=== PATIENT | female | born 1995 | race Caucasian/White ===

== ENCOUNTER → 2023-09-17 14:14 | Outpatient (REF) | payer MEDICARE, SELFPAY | LOC: HWRAD 14:14 | PROVIDERS: ATTENDING PHYSICIAN Otolaryngology; FAMILY PHYSICIAN Family Medicine | DX: J32.0 Chronic maxillary sinusitis (principal) | CPT/HCPCS: 70486 ==

== ENCOUNTER 2024-02-09 15:15 | Emergency (ER) | payer OTHER, SELFPAY ==
[2024-02-09 15:17] VITALS: BP 119/81
[2024-02-09 15:37] LABS: % Basophils 0.5 % (0-2); % Eosinophils 0.9 % (0-6); % Immature Granulocytes 0.2 % (0-0.5); % Lymphocytes 26.6 % (20.5-51.1); % Monocytes 4.1 % (1.7-9.3); % Neutrophils 67.7 % (42.2-75.2); Absolute Lymphocytes 1.2 10^3/uL (1.2-3.4); Absolute Monocytes 0.2 10^3/uL (0.1-0.6); Hematocrit 34.7 % (37.0-47.0); Hemoglobin 12.3 g/dL (12.0-16.0); Mean Corp Hgb Conc. 35.4 g/dL (33.0-37.0); Mean Corpuscular Hgb 29.5 pg (27.0-31.0); Mean Corpuscular Volume 83.2 fL (81.0-99.0); Mean Platelet Volume 10.6 fL (7.4-10.4); Nucleated Red Blood Cells % 0 %; Platelet Count 180 10^3/uL (130-400); Red Blood Cell Count 4.17 10^6/uL (4.20-5.40); Red Cell Dist. Width 12.1 % (11.5-14.5); White Blood Cell Count 4.4 10^3/uL (4.8-10.8)
[2024-02-09 15:51] LABS: HCG, Serum Qualitative Screen Negative
[2024-02-09 15:58] LABS: Blood Urea Nitrogen 11 mg/dl (7-17); Calcium 9.7 mg/dl (8.4-10.2); Carbon Dioxide 15 mmol/L (22-30); Chloride 111 mmol/L (98-107); Glucose 180 mg/dl (70-99); Sodium 139 mmol/L (135-145); eGFR > 60.00
[2024-02-09 16:02] LABS: Troponin I < 0.012 ng/ml
[2024-02-09 16:22] LABS: TSH Reflex To Free T4 0.68 uIU/ml (0.47-4.68)
[2024-02-09 16:54] VITALS: BP 93/63
[2024-02-09 16:55] VITALS: BMI 39.5
[2024-02-09 16:56] VITALS: BP 105/67; BP 93/63; BP 98/71; PULSE 58; PULSE 71; PULSE 88
[2024-02-09 16:58] VITALS: BP 98/71
[2024-02-09 17:00] VITALS: BP 105/67
--- NOTE | 2024-02-09 17:07 | ED.GENMED ---
History of Present Illness
<Leela Reyes PA-C - Last Filed: 02/09/24 19:19>
General
Chief Complaint: Cardiac Symptoms
Source: patient
Exam Limitations: none
Time Seen by Provider: 02/09/24 16:21
Nursing documentation reviewed up to this point in time: agreed with
History of Present Illness
History of Present Illness:
Patient is a 28-year-old female with history of chronic fatigue syndrome, PCOS, lupus presenting to the emergency department for evaluation of elevated heart rate at home. Patient states that over the past few days she has had few episodes of
elevated heart rate, most notable when she goes from sitting to standing. She has used her mom's pulse ox and states that pulse has been in the low 100s�150s. Symptoms last at most a few minutes and resolve when she sits down. Patient does
endorse some associated mild chest pain during these episodes and lightheadedness.
Patient denies any associated shortness of breath, numbness/tingling, weakness. Patient denies any pain in lower extremities. No recent travel or recent surgeries. No exogenous hormone use. No personal or family history of blood clots.
At this time patient is asymptomatic. Patient does have an appointment scheduled with a surveillance operator for next Thursday.
Past History
<Leela Reyes PA-C - Last Filed: 02/09/24 19:19>
Past History
ED Past Medical History: Fibromyalgia, Psychiatric (Anxiety, depression), Other (fibromyalgia, chronic migraines, Lupus) and Other (Polycystic ovarian syndrome, seasonal allergies, morbid obesity)
ED Past Surgical History: Other (Septoplasty)
Social History
Tobacco: Non-smoker
Alcohol: None
Drug: None
Review of Systems
<Leela Reyes PA-C - Last Filed: 02/09/24 19:19>
Review of Systems
Allergies reviewed?: Yes
All Other Systems: ROS reviewed and negative except as documented in HPI and ROS
Phy Exam
<Leela Reyes PA-C - Last Filed: 02/09/24 19:19>
Physical Exam
Physical Exam:
Vitals: Patient's vital signs are stable. Afebrile
General: Patient is well appearing, no acute distress
Skin: Warm and dry, no rashes or lesions
Head: Normocephalic, atraumatic
Eyes: Sclera nonicteric. EOMs intact. No nystagmus.
Throat: Protecting airway
Neck: Normal ROM, no cervical spine tenderness, no meningismus
Cardiac: Regular rate and rhythm, no murmurs.
Pulm: Normal respiratory effort, no wheezes, rales, rhonchi heard on exam.
Abdomen: Abdomen soft. No abdominal tenderness.
Extremities: No evidence of cyanosis or edema. Distal pulses palpable and equal bilaterally in upper and lower extremities.
Neuro: AAOx3. CN II-XII intact. No focal neurologic deficits.
Psychiatric: Normal affect.
Course
<Leela Reyes PA-C - Last Filed: 02/09/24 19:19>
Orders/Labs/Results
Orders:
Orders
02/09/24 15:17
EKG [Electrocardiogram (*1)] Urgent
Reason for Study: Chest Pain
Comment: palpitations
EKG- Treatment ONCE
02/09/24 15:23
Test Result ONCE
02/09/24 15:26
Basic Metabolic Panel Urgent
Complete Blood Count/With Diff Urgent
HCG, Serum Qualitative Screen Urgent
TSH Reflex To Free T4 Urgent
Troponin I Urgent
02/09/24 17:04
Orthostatic VS- Treatment ONCE
Abnormal Lab Results
02/09/24
15:26
WBC 4.4 L 10^3/uL
(4.8-10.8)
RBC 4.17 L 10^6/uL
(4.20-5.40)
Hct 34.7 L %
(37.0-47.0)
MPV 10.6 H fL
(7.4-10.4)
Chloride 111 H mmol/L
(98-107)
Carbon Dioxide 15 L mmol/L
(22-30)
Glucose 180 H mg/dl
(70-99)
02/09/24 15:26
02/09/24 15:26
Vital Signs
Initial and Last Documented VS:
Initial Vital Signs
Temp Pulse Resp BP Pulse Ox
98.4 F 90 16 119/81 97
02/09/24 15:17 02/09/24 15:17 02/09/24 15:17 02/09/24 15:17 02/09/24 15:17
Last Documented Vital Signs
Temp Pulse Resp BP Pulse Ox
98.4 F 63 23 105/67 95
02/09/24 15:17 02/09/24 17:30 02/09/24 17:30 02/09/24 17:00 02/09/24 17:30
<Sabrina Olmos, DO - Last Filed: 02/09/24 17:32>
Orders/Labs/Results
Orders:
Orders
02/09/24 15:17
EKG [Electrocardiogram (*1)] Urgent
Reason for Study: Chest Pain
Comment: palpitations
EKG- Treatment ONCE
02/09/24 15:23
Test Result ONCE
02/09/24 15:26
Basic Metabolic Panel Urgent
Complete Blood Count/With Diff Urgent
HCG, Serum Qualitative Screen Urgent
TSH Reflex To Free T4 Urgent
Troponin I Urgent
02/09/24 17:04
Orthostatic VS- Treatment ONCE
Abnormal Lab Results
02/09/24
15:26
WBC 4.4 L 10^3/uL
(4.8-10.8)
RBC 4.17 L 10^6/uL
(4.20-5.40)
Hct 34.7 L %
(37.0-47.0)
MPV 10.6 H fL
(7.4-10.4)
Chloride 111 H mmol/L
(98-107)
Carbon Dioxide 15 L mmol/L
(22-30)
Glucose 180 H mg/dl
(70-99)
02/09/24 15:26
02/09/24 15:26
Vital Signs
Initial and Last Documented VS:
Initial Vital Signs
Temp Pulse Resp BP Pulse Ox
98.4 F 90 16 119/81 97
02/09/24 15:17 02/09/24 15:17 02/09/24 15:17 02/09/24 15:17 02/09/24 15:17
Last Documented Vital Signs
Temp Pulse Resp BP Pulse Ox
98.4 F 63 23 105/67 95
02/09/24 15:17 02/09/24 17:30 02/09/24 17:30 02/09/24 17:00 02/09/24 17:30
<Leela Reeys PA-C - Last Filed: 02/09/24 19:19>
MDM/Problems Addressed
Differential Diagnosis Includes:
Not limited to: Orthostatic hypotension, cardiac arrhythmia, dehydration, viral illness, POTS, etc.
MDM/Problems Addressed:
28-year-old female presenting with history of palpitations and elevated heart rate at home with positional changes. Asymptomatic in emergency department. No current chest pain, shortness of breath, palpitations. Vital stable. Physical exam as
above. Cardio/pulmonary assessment unremarkable. No focal neurologic deficits. Patient is perfusing well. Orthostatic vital signs were obtained with mild elevation in heart rate although no significant tachycardia. Labs initiated in triage
without clinically significant abnormalities. TSH is within normal range. Initial troponin undetectable. Low suspicion for ACS at this time�no indication to repeat troponin. Patient is PERC negative�do not suspect PE. EKG obtained without any
acute ischemic changes. Patient is currently being worked up for POTS which may be contributing to patient's symptoms. Symptoms do seem positional. Workup here unremarkable. Feel patient is stable for discharge with cardiology follow-up as
scheduled. Patient may benefit from Holter monitor. Advised patient to stay well-hydrated. Very strict return precaution discussed at length. Patient ambulating out of emergency department without difficulty.
Chronic conditions affecting care:
N/A
Acute Exacerbation and/or Progression of Chronic Illness:
N/A
<Leela Reyes PA-C - Last Filed: 02/09/24 19:19>
*Pulse Oximetry
Patient hypoxic: no
*EKG
Interpreted by ED Provider?: Yes
EKG Intrepretation Date: 02/09/24
Interpretation: normal
Comparison EKG: no changes
Heart Rate: 75
Rate: normal
Rhythm: sinus and sinus arrhythmia
[place]: normal axis
Interval: normal interval
QRS Pattern: normal QRS
Ischemia: no ischemia
*Packaging Designer Interpretation
Rate: normal
Interpretation: normal
Heart Rate: 68
Rhythm: sinus
*Critical Care Note
Total Time (30-74mins, 75-104mins- exclusive of procedures): Not Applicable
ED Attending Note
<Leela Reyes PA-C - Last Filed: 02/09/24 19:19>
-
Portions of this chart may have been created with voice recognition software.� Occasional wrong word or��sound alike� substitutions may have occurred due to the inherent limitations of voice recognition software.
<Sabrina Olmos DO - Last Filed: 02/09/24 17:32>
ED Attending Note
Patient seen and examined by attending physician: Yes
I performed the substantive portion of visit, reviewed & personally made and approve the management plan that is documented in note by myself or BRO.: Yes
I performed a history and physical exam of patient and discussed management with resident, I reviewed resident's note and agree with documented findings and plan of care.: Yes
ED Attending Note:
28-year-old female with history of lupus, chronic fatigue, fibromyalgia presenting to the emergency department for chest pain and palpitations when going from sitting to standing position. Reports symptoms for the past several days, however has
been ongoing for weeks. She is due to see cardiology next week. Denies known cardiac history. Denies difficulty breathing. Denies history of recent surgery, travel, exogenous estrogen, or any history of blood clots. Denies fever or cough.
Denies recent fall or trauma. Vital signs on arrival are normal.
On exam, patient is resting comfortably, no acute distress or discomfort. Unremarkable cardiac and pulmonary exam. EKG obtained on arrival, sinus rhythm without acute evidence of ischemia. Labs obtained prior to my assessment, undetectable
troponin. Without present concern for ACS. Patient is PERC negative without concern for PE. Patient reports that she is currently being worked up for POTS, which may be underlying etiology of patient's symptoms. Patient had orthostatic vital
signs obtained, no significant tachycardia. At this time do suspect postural component. Feel stable for discharge with interval follow-up with cardiology. Advised continued oral hydration. Strict return precautions communicated to patient
verbalized understanding.
Discharge Plan
Departure
Patient Disposition: Home (Routine Discharge)
Date of Disposition: 02/09/24
Time of Disposition: 17:35
Patient with high blood pressure during this ER visit?: No
Condition: Good
Covid-19: Not Applicable
Discharge Problem:
History of palpitations
Instructions: Palpitations ED
Prescriptions:
No Action
amoxicillin-pot clavulanate 875 MG/125 MG tablet
1 tab PO Q12 Qty: 14 0RF
amoxicillin-pot clavulanate 875 MG/125 MG tablet
1 tab PO Q12 Qty: 6 0RF
amoxicillin 500 MG capsule
500 mg PO TID Qty: 30 0RF
hydrocodone-acetaminophen [Vicodin] 1 EACH tablet
1 ea PO .Q4-6HPRN Qty: 12 0RF
ibuprofen 600 MG tablet
600 mg PO Q6H Qty: 30 0RF
xb-ngkyycst-kbhacynpfefu#1-al [Auralgan (w/ acetic acid)] 14 ML drops
14 ml OT PRN PRN (Reason: ear pain) Qty: 1 0RF
prednisone 10 MG tablet
10 mg PO .TAPER Qty: 30 0RF
Rx Instructions:
Take 40mg daily x3days, 30mg daily x3days,
20mg daily x3days, 10mg daily x3days.
hydrocodone-acetaminophen 1 TABLET tablet
1 tab PO Q4HPRN PRN (Reason: pain) Qty: 8 0RF
diazepam 5 MG tablet
5 mg PO TIDPRN PRN (Reason: spasm) Qty: 9 0RF
clindamycin HCl 300 MG capsule
300 mg PO Q6 Qty: 28 0RF
ondansetron 4 MG tablet,disintegrating
4 mg PO TIDPRN PRN (Reason: nausea/vomiting) Qty: 12 0RF
prednisone 20 MG tablet
40 mg PO DAILY Qty: 8 0RF
Referrals:
Patti Gill MD [Primary Care Provider] -
Meir Greer MD [Active] - As needed
Activity Restrictions/Additional Instructions:
RETURN TO THE EMERGENCY DEPARTMENT WITH ANY CHEST PAIN, SHORTNESS OF BREATH, PERSISTENTLY ELEVATED HEART RATE, DIZZINESS, WORSENING IN CURRENT SYMPTOMS, OR ANY OTHER CONCERNS
-As discussed�you should keep your appointment for cardiology follow-up as scheduled. You may need a Holter monitor/further evaluation. I have provided the information for a surveillance operator within the [facility] network if needed.
-It is important stay well-hydrated. You should take it easy, get plenty of rest. Continue to take all medications as prescribed
-Follow-up with cardiology and primary care for further evaluation/management
Monitor your symptoms closely and return to the emergency department with any acute worsening/new symptoms or any other concerns
Interventions
Interventions:
*Risk Screen - Suicide Last Done: 02/09/24 17:04
*General Assessment Last Done: 02/09/24 17:03
*Neglect/Abuse Screening Last Done: 02/09/24 17:04
ED- Fall Risk Assessment Last Done: 02/09/24 17:58
*ED COVID-19 Vaccine History Last Done: 02/09/24 17:03
*Nursing Disposition Last Done: 02/09/24 17:58
ED- Pulmonary Assessment Last Done: 02/09/24 17:00
ED- Cardiac Assessment Last Done: 02/09/24 17:00
Discharge Date and Time
Discharge Date/Time: 02/09/24 17:50
Print Language: SERBIAN
== END 2024-02-09 17:50 | disposition home or self-care (01) ==
LOC: EMR 15:15
PROVIDERS: Student in an Organized Health Care Education/Training Program; EMERGENCY PHYSICIAN Student in an Organized Health Care Education/Training Program; PRIMARYCARE PHYSICIAN Family Medicine
DX: R00.2 Palpitations (principal); G93.32 Myalgic encephalomyelitis/chronic fatigue syndrome; E28.2 Polycystic ovarian syndrome; M32.9 Systemic lupus erythematosus, unspecified; E66.01 Morbid (severe) obesity due to excess calories; M79.7 Fibromyalgia
CPT/HCPCS: 99283; 80048; 84443; 84484; 84703; 85025; 93005

== ENCOUNTER → 2024-03-31 07:48 | Outpatient (REF) | payer MEDICARE, SELFPAY | LOC: RAD 07:48 | PROVIDERS: ATTENDING PHYSICIAN Internal Medicine Gastroenterology; FAMILY PHYSICIAN Family Medicine | DX: R11.2 Nausea with vomiting, unspecified (principal); K31.84 Gastroparesis | CPT/HCPCS: 78264; A9541 ==

== ENCOUNTER 2024-06-03 18:32 | Emergency (ER) | payer MEDICARE, OTHER, SELFPAY ==
[2024-06-03 18:36] VITALS: BP 127/93
--- NOTE | 2024-06-03 19:08 | ED.GENMED ---
History of Present Illness
General
Chief Complaint: Bowel Problem
Time Seen by Provider: 06/03/24 18:47
History of Present Illness
History of Present Illness:
29-year-old female history of IBS, gastroparesis presenting with constipation for the past 1 week. Patient states that she feels rectal pain/pressure like she needs to have a bowel movement but is unable to push it out. Patient reports lower
abdominal pain. Patient states she has tried taking 1 day of Dulcolax, 1 day of senna, 1 day MiraLAX with no improvement. Patient states that these medications make her feel nauseous and sweaty with worsening abdominal cramping. Patient states
that whenever she uses suppository or enema it falls out. Otherwise patient states that she is still passing gas. Patient states she discussed with her GI office who recommended come to the emergency department for further evaluation.
Past History
Past History
ED Past Medical History: Fibromyalgia, Psychiatric (Anxiety, depression), Other (fibromyalgia, chronic migraines, Lupus) and Other (Polycystic ovarian syndrome, seasonal allergies, morbid obesity)
ED Past Surgical History: Other (Septoplasty)
Social History
Tobacco: Non-smoker
Alcohol: None
Drug: None
Phy Exam
Physical Exam
Physical Exam:
General: Alert, no acute distress
Head: NCAT
Eyes: clear conjunctiva
Neck: supple
Cardiac: regular rate and rhythm, no murmur
Lungs: clear to auscultation bilaterally. No wheezes, rales, or rhonchi. Speaking full unlabored sentences. No respiratory distress.
Abdomen: soft, nondistended nontender. No rebound or guarding. Not peritonitic.
MSK: no lower extremity edema bilaterally. No deformity
Skin: warm, dry
Neuro: Alert and oriented x3. no focal deficits
Course
Vital Signs
Initial and Last Documented VS:
Initial Vital Signs
Temp Pulse Resp BP Pulse Ox
98.2 F 90 20 127/93 99
06/03/24 18:36 06/03/24 18:36 06/03/24 18:36 06/03/24 18:36 06/03/24 18:36
Last Documented Vital Signs
Temp Pulse Resp BP Pulse Ox
98.2 F 90 20 127/93 99
06/03/24 18:36 06/03/24 18:36 06/03/24 18:36 06/03/24 18:36 06/03/24 18:36
MDM/Problems Addressed
MDM/Problems Addressed:
29-year-old female history of IBS, gastroparesis presenting with constipation for the past 1 week. Patient reports taking 1 dose of MiraLAX, senna, Colace with minimal improvement and feels that these medications make her symptoms worse. Patient
states that she is still passing gas. Abdomen soft, nontender, nondistended. Offered rectal exam for manual disimpaction, patient declined. No indication for further imaging giving benign abdominal exam, no vomiting, patient still passing gas,
low suspicion for bowel obstruction. Recommended to drink lots of water, increase fiber intake, will prescribe lactulose. Stable for discharge with GI follow-up
*Critical Care Note
Total Time (30-74mins, 75-104mins- exclusive of procedures): Not Applicable
ED Attending Note
-
Portions of this chart may have been created with voice recognition software.� Occasional wrong word or��sound alike� substitutions may have occurred due to the inherent limitations of voice recognition software.
Discharge Plan
Departure
Patient Disposition: Home (Routine Discharge)
Date of Disposition: 06/03/24
Time of Disposition: 19:14
Patient with high blood pressure during this ER visit?: Yes
Discharge Problem:
Constipation
Instructions: Constipation, Adult ED
Prescriptions:
New
lactulose 10 gram/15 mL solution
20 g PO BID Qty: 1200 0RF
No Action
amoxicillin-pot clavulanate 875 MG/125 MG tablet
1 tab PO Q12 Qty: 14 0RF
amoxicillin-pot clavulanate 875 MG/125 MG tablet
1 tab PO Q12 Qty: 6 0RF
amoxicillin 500 MG capsule
500 mg PO TID Qty: 30 0RF
hydrocodone-acetaminophen [Vicodin] 1 EACH tablet
1 ea PO .Q4-6HPRN Qty: 12 0RF
ibuprofen 600 MG tablet
600 mg PO Q6H Qty: 30 0RF
md-cnzwjymv-tswsxfvhunhd#1-al [Auralgan (w/ acetic acid)] 14 ML drops
14 ml OT PRN PRN (Reason: ear pain) Qty: 1 0RF
prednisone 10 MG tablet
10 mg PO .TAPER Qty: 30 0RF
Rx Instructions:
Take 40mg daily x3days, 30mg daily x3days,
20mg daily x3days, 10mg daily x3days.
hydrocodone-acetaminophen 1 TABLET tablet
1 tab PO Q4HPRN PRN (Reason: pain) Qty: 8 0RF
diazepam 5 MG tablet
5 mg PO TIDPRN PRN (Reason: spasm) Qty: 9 0RF
clindamycin HCl 300 MG capsule
300 mg PO Q6 Qty: 28 0RF
ondansetron 4 MG tablet,disintegrating
4 mg PO TIDPRN PRN (Reason: nausea/vomiting) Qty: 12 0RF
prednisone 20 MG tablet
40 mg PO DAILY Qty: 8 0RF
Referrals:
Lani Ferrari MD [Active] -
UNKNOWN - PT DOES,NOT KNOW [Family Provider] -
Activity Restrictions/Additional Instructions:
Drink lots of water
Increase fiber intake
Take lactulose twice daily as needed for constipation
Follow-up with GI
Return to the emergency department for not passing gas or new/worsening symptoms
Interventions
Interventions:
*Risk Screen - Suicide Last Done: 06/03/24 19:12
*General Assessment Last Done: 06/03/24 18:36
*Neglect/Abuse Screening Last Done: 06/03/24 19:12
*ED- Fall Risk Assessment Last Done: 06/03/24 19:12
*ED COVID-19 Vaccine History Last Done: 06/03/24 19:12
*Nursing Disposition Last Done: 06/03/24 20:08
OU-Avbhix-Qechktclxx Assessment Last Done: 06/03/24 19:12
Discharge Date and Time
Discharge Date/Time: 06/03/24 20:16
Print Language: YORUBA
[2024-06-03 19:12] VITALS: BMI 37.1
== END 2024-06-03 20:16 | disposition home or self-care (01) ==
LOC: EMR 18:32
PROVIDERS: EMERGENCY PHYSICIAN Emergency Medicine
DX: K59.00 Constipation, unspecified (principal); R03.0 Elevated blood-pressure reading, without diagnosis of hypertension; K58.9 Irritable bowel syndrome, unspecified
CPT/HCPCS: 99282

== ENCOUNTER → 2024-06-27 14:52 | Outpatient (REF) | payer MEDICARE, OTHER, SELFPAY | LOC: RAD 14:52 | PROVIDERS: ATTENDING PHYSICIAN Student in an Organized Health Care Education/Training Program | DX: K59.00 Constipation, unspecified (principal) | CPT/HCPCS: 74019 ==

== ENCOUNTER 2024-07-17 10:34 | Emergency (ER) | payer MEDICARE, OTHER, SELFPAY ==
[2024-07-17 10:36] VITALS: BP 121/72
[2024-07-17 11:36] VITALS: BMI 36.0
[2024-07-17 11:52] LABS: % Basophils 0.4 % (0-2); % Eosinophils 0.4 % (0-6); % Lymphocytes 28.7 % (20.5-51.1); % Neutrophils 63.5 % (42.2-75.2); Absolute Lymphocytes 1.3 10^3/uL (1.2-3.4); Absolute Monocytes 0.3 10^3/uL (0.1-0.6); Absolute Neutrophils 2.8 10^3/uL (1.4-6.5); Hematocrit 35.7 % (37.0-47.0); Hemoglobin 12.5 g/dL (12.0-16.0); Mean Corpuscular Hgb 29.8 pg (27.0-31.0); Mean Platelet Volume 10.5 fL (7.4-10.4); Nucleated Red Blood Cells % 0 %; Platelet Count 188 10^3/uL (130-400); Red Cell Dist. Width 12.2 % (11.5-14.5); White Blood Cell Count 4.5 10^3/uL (4.8-10.8)
[2024-07-17 12:05] LABS: HCG, Serum Qualitative Screen Negative
[2024-07-17 12:07] LABS: ALT (SGPT) 29 U/L (0-35); AST (SGOT) 26 U/L (14-36); Albumin 4.5 g/dl (3.5-5.0); Alkaline Phosphatase 51 U/L (38-126); Blood Urea Nitrogen 13 mg/dl (7-17); Calcium 9.7 mg/dl (8.4-10.2); Carbon Dioxide 21 mmol/L (22-30); Chloride 110 mmol/L (98-107); Estimated Creatinine Clearance 124 ml/min; Glucose 101 mg/dl (70-99); Potassium 4.4 mmol/L (3.5-5.1); Sodium 140 mmol/L (135-145); Total Bilirubin 0.5 mg/dl (0.2-1.3); Total Protein 6.7 g/dl (6.3-8.2); eGFR > 60.00
--- NOTE | 2024-07-17 12:17 | ED.GENMED ---
History of Present Illness
General
Chief Complaint: Abdominal Symptoms
Source: patient
Exam Limitations: none
Time Seen by Provider: 07/17/24 12:00
Nursing documentation reviewed up to this point in time: agreed with
History of Present Illness
History of Present Illness:
29-year-old female with history of gastroparesis, POTS, fibromyalgia, PCOS, migraines, lupus, interstitial cystitis and is being worked up for mast cell syndrome. She presents with 4 days of diarrhea, back and neck pain, stomach cramps that come
and go, nausea for which she has been taking Pepto-Bismol and Zofran with some relief, retching but no vomiting. So far today she has had 6 episodes of diarrhea, the last one was 15 minutes ago. No recent antibiotic use.
She also states she has an IUD and noted some spotting today which is new for her.
She denies fever or chills, denies chest pain or trouble breathing.
She has an appointment with her automotive sales representative at [facility] in [place] in 3 days
Past History
Past History
ED Past Medical History: Fibromyalgia, Psychiatric (Anxiety, depression), Other (fibromyalgia, chronic migraines, Lupus, POTS) and Other (Polycystic ovarian syndrome, seasonal allergies, morbid obesity)
ED Past Surgical History: Other (Septoplasty)
Social History
Tobacco: Non-smoker
Alcohol: None
Drug: None
Review of Systems
Review of Systems
Allergies reviewed?: Yes
All Other Systems: ROS reviewed and negative except as documented in HPI and ROS
Constitutional: Denies fever
Respiratory: Denies trouble breathing
Cardiac: Denies chest pain
ABD/GI: Reports abdominal pain, nausea, vomiting, diarrhea and anorexia; Denies bloody stools or black stools
: Reports dysuria (chronic with her cystitis) and other (spotting noted today has IUD); Denies frequency, flank pain, difficulty voiding or urgency
Musculoskeletal: Reports no symptoms
Skin: Reports no symptoms
Neurological: Reports headache; Denies dizzy, weakness or numbness
Phy Exam
Physical Exam
Physical Exam:
GENERAL: No acute distress. A&Ox3.
CONSTITUTIONAL: Afebrile.
EYES: clear, conjunctivae normal
ENMT: moist mucus membranes, Pharynx nl
RESPIRATORY: Regular respirations, nonlabored, lungs clear.
CARDIOVASCULAR: Regular rate and rhythm, no murmurs, no rubs.
GI: Soft, obese, tender mid lower abdomen, normal BS
MUSCULOSKELETAL: Moves with ease. Well perfused.
SKIN: Warm, dry, pink
PSYCH: Normal mood and affect. Well kept, interactive and appropriate
NEUROLOGIC: Awake, alert and oriented. No focal neurological deficits
Course
Orders/Labs/Results
Orders:
Orders
07/17/24 11:38
Test Result ONCE
07/17/24 11:43
Complete Blood Count/With Diff Urgent
Comprehensive Metabolic Panel Urgent
HCG, Serum Qualitative Screen Urgent
Lipase Urgent
07/17/24 12:05
Stool Culture Urgent
XENA Source: Feces/Stool
Specimen Description:
Date Specimen was Collected: 07/17/24
Time Specimen was Collected: 12:00
07/17/24 12:07
CDIFF [C difficile Antigen & Toxins] Urgent
XENA Source: Feces/Stool
Specimen Description:
Date Specimen was Collected: 07/17/24
Time Specimen was Collected: 12:06
07/17/24 12:15
0.9% Sodium Chloride 1000 ml [Nss] 1,000 ml IV BOLUS
07/17/24 12:16
Ondansetron Injectable [Zofran] 4 mg IV NOW STA
07/17/24 12:33
CT Abd/Pel (IV only)-DH only Urgent
Comment:
Reason For Exam: abd pain, diarrhea, vomiting
07/17/24 14:50
Dicyclomine [Bentyl] 10 mg PO NOW STA
Loperamide [Imodium] 2 mg PO NOW STA
07/17/24 15:17
Urinalysis Reflex To Culture Urgent
Date Specimen was Collected: 07/17/24
Time Specimen was Collected: 12:43
Urine Microscopic Reflex Cult Urgent
Abnormal Lab Results
07/17/24 07/17/24
11:43 15:17
WBC 4.5 L 10^3/uL
(4.8-10.8)
Hct 35.7 L %
(37.0-47.0)
MPV 10.5 H fL
(7.4-10.4)
Chloride 110 H mmol/L
(98-107)
Carbon Dioxide 21 L mmol/L
(22-30)
Glucose 101 H mg/dl
(70-99)
Urine Ketones 3+ A
(Negative)
Ur Occult Blood Reflex 3+ A
(Negative)
Urine Bacteria (Reflex) Few A
(Negative)
Urine Albumin (Reflex) 2+ A
(Neg - Trace)
07/17/24 11:43
07/17/24 11:43
Vital Signs
Initial and Last Documented VS:
Initial Vital Signs
Temp Pulse Resp BP Pulse Ox
97.9 F 83 16 121/72 98
07/17/24 10:36 07/17/24 10:36 07/17/24 10:36 07/17/24 10:36 07/17/24 10:36
Last Documented Vital Signs
Temp Pulse Resp BP Pulse Ox
97.9 F 73 18 104/68 100
07/17/24 10:36 07/17/24 14:37 07/17/24 14:37 07/17/24 14:37 07/17/24 14:37
Spike Machine Heater consulted with Physician
Spike Machine Heater consulted with physician?: Yes
Name of Physician Consulted: Nik
MDM/Problems Addressed
Differential Diagnosis Includes:
viral gastroenteritis, diverticulitis, UTI
MDM/Problems Addressed:
29-year-old female with history of gastroparesis, POTS, fibromyalgia, PCOS, migraines, lupus, interstitial cystitis and is being worked up for mast cell syndrome. She presents with 4 days of diarrhea, back and neck pain, stomach cramps that come
and go, nausea for which she has been taking Pepto-Bismol and Zofran with some relief, retching but no vomiting. So far today she has had 6 episodes of diarrhea, the last one was 15 minutes ago. No recent antibiotic use.
She also states she has an IUD and noted some spotting today which is new for her.
She denies fever or chills, denies chest pain or trouble breathing.
She has an appointment with her automotive sales representative at [facility] in [place] in 3 days
Afebrile, NAD
1:00 PM:
CBC normal
CMP normal
hCG negative
Lipase normal
2:40 p.m.
Has had one episode diarrhea since arrival.
CT abd/pelvis w IV only contrast, radiology report read: IMPRESSION:
Relatively underdistended/collapsed colon. However there does appear to be at least mild wall thickening, which could suggest colitis in the proper clinical setting. No significant soft tissue stranding. No evidence of pneumatosis.
All results reviewed with pt and given copy of CT result as well as labs.
Plan: antidiarrheal, Bentyl for abd cramps, Zofran as needed. Keep GI appt. in 3 days
Case discussed with Dr. Zaragoza who agrees with plan.
*Critical Care Note
Total Time (30-74mins, 75-104mins- exclusive of procedures): Not Applicable
ED Attending Note
-
Portions of this chart may have been created with voice recognition software.� Occasional wrong word or��sound alike� substitutions may have occurred due to the inherent limitations of voice recognition software.
Discharge Plan
Departure
Patient Disposition: Home (Routine Discharge)
Date of Disposition: 07/17/24
Time of Disposition: 14:51
Patient with high blood pressure during this ER visit?: No
Condition: Good
Discharge Problem:
Abdominal pain, Diarrhea, Nausea
Instructions: Diarrhea in teens and adults, Abdominal Pain
Prescriptions:
New
ondansetron 4 mg tablet,disintegrating
4 mg PO Q8H PRN (Reason: nausea and vomiting) 4 Days Qty: 10 0RF
dicyclomine 10 mg capsule
10 mg PO QID PRN (Reason: abdominal cramping) Qty: 20 0RF
No Action
amoxicillin-pot clavulanate 875 MG/125 MG tablet
1 tab PO Q12 Qty: 14 0RF
amoxicillin-pot clavulanate 875 MG/125 MG tablet
1 tab PO Q12 Qty: 6 0RF
amoxicillin 500 MG capsule
500 mg PO TID Qty: 30 0RF
hydrocodone-acetaminophen [Vicodin] 1 EACH tablet
1 ea PO .Q4-6HPRN Qty: 12 0RF
ibuprofen 600 MG tablet
600 mg PO Q6H Qty: 30 0RF
ym-iwcsmayu-bucvyufhrujw#1-al [Auralgan (w/ acetic acid)] 14 ML drops
14 ml OT PRN PRN (Reason: ear pain) Qty: 1 0RF
prednisone 10 MG tablet
10 mg PO .TAPER Qty: 30 0RF
Rx Instructions:
Take 40mg daily x3days, 30mg daily x3days,
20mg daily x3days, 10mg daily x3days.
hydrocodone-acetaminophen 1 TABLET tablet
1 tab PO Q4HPRN PRN (Reason: pain) Qty: 8 0RF
diazepam 5 MG tablet
5 mg PO TIDPRN PRN (Reason: spasm) Qty: 9 0RF
clindamycin HCl 300 MG capsule
300 mg PO Q6 Qty: 28 0RF
ondansetron 4 MG tablet,disintegrating
4 mg PO TIDPRN PRN (Reason: nausea/vomiting) Qty: 12 0RF
prednisone 20 MG tablet
40 mg PO DAILY Qty: 8 0RF
lactulose 10 gram/15 mL solution
20 g PO BID Qty: 1200 0RF
Referrals:
Your, GI doctor [Other] - Keep scheduled appt
Chelle Burk MD, Resident [Family Provider] -
Activity Restrictions/Additional Instructions:
As we discussed, nothing worrisome in your workup here today.
Take Imodium as directed on the package. You were given a dose here today
Try Bentyl for the abdominal cramps. You were given a dose here today. I sent a prescription for it to your pharmacy.
I also sent a prescription for Zofran to use if needed for nausea. You were given a dose of Zofran here today.
Keep you appointment with your GI doctor in 3 days.
Interventions
Interventions:
*Risk Screen - Suicide Last Done: 07/17/24 11:36
*General Assessment Last Done: 07/17/24 11:36
*Neglect/Abuse Screening Last Done: 07/17/24 11:36
YL-Djzmew-Wvvdohizvv Assessment Last Done: 07/17/24 11:36
Discharge Date and Time
Print Language: CZECH
[2024-07-17 12:22] LABS: Lipase 110 U/L (23-300)
[2024-07-17] MEDS: ZOFRAN 4 MG IV (12:29)
[2024-07-17] MEDS: NSS 1000 IV (12:29)
[2024-07-17 14:37] VITALS: BP 104/68
[2024-07-17] MEDS: BENTYL 10 MG PO (15:14)
[2024-07-17] MEDS: IMODIUM 2 MG PO (15:14)
[2024-07-17 15:33] LABS: Urine Albumin 2+ (Neg - Trace); Urine Bilirubin Negative (Negative); Urine Character Slightly Cloudy (Clear); Urine Color Yellow; Urine Glucose Negative (Negative); Urine Ketone 3+ (Negative); Urine Leukocyte Negative (Negative); Urine Nitrite Negative (Negative); Urine Occult Blood 3+ (Negative); Urine Urobilinogen Negative (Neg - 1+)
[2024-07-17 15:43] LABS: Urine Bacteria Few (Negative)
[2024-07-17 15:44] LABS: Urine Red Blood Cell 0-2 /HPF (0-2); Urine White Cell 0-2 /HPF (0-5)
== END 2024-07-17 16:52 | disposition home or self-care (01) ==
LOC: EMR 10:34
PROVIDERS: Registered Nurse; EMERGENCY PHYSICIAN Emergency Medicine; FAMILY PHYSICIAN Student in an Organized Health Care Education/Training Program
DX: R19.7 Diarrhea, unspecified (principal); R11.0 Nausea; R10.9 Unspecified abdominal pain; M79.7 Fibromyalgia; E28.2 Polycystic ovarian syndrome
CPT/HCPCS: 96374; 96361; 99284; 74177; 80053; 81003; 81015; 83690; 84703; 85025; 87045; 87046; 87324; 87427; 87449; Q9967

== ENCOUNTER 2024-08-25 14:37 | Emergency (ER) | payer MEDICARE, OTHER, SELFPAY ==
[2024-08-25 14:49] VITALS: BP 113/79
[2024-08-25 15:15] LABS: % Basophils 0.4 % (0-2); % Eosinophils 0.6 % (0-6); % Immature Granulocytes 0.4 % (0-0.5); % Lymphocytes 20.7 % (20.5-51.1); % Monocytes 5.4 % (1.7-9.3); % Neutrophils 72.5 % (42.2-75.2); Absolute Lymphocytes 1.1 10^3/uL (1.2-3.4); Absolute Monocytes 0.3 10^3/uL (0.1-0.6); Absolute Neutrophils 3.9 10^3/uL (1.4-6.5); Hematocrit 37.3 % (37.0-47.0); Hemoglobin 12.8 g/dL (12.0-16.0); Mean Corp Hgb Conc. 34.3 g/dL (33.0-37.0); Mean Corpuscular Hgb 29.6 pg (27.0-31.0); Mean Corpuscular Volume 86.3 fL (81.0-99.0); Mean Platelet Volume 10.1 fL (7.4-10.4); Nucleated Red Blood Cells % 0 %; Platelet Count 181 10^3/uL (130-400); Red Blood Cell Count 4.32 10^6/uL (4.20-5.40); Red Cell Dist. Width 12.1 % (11.5-14.5); White Blood Cell Count 5.4 10^3/uL (4.8-10.8)
[2024-08-25 15:32] LABS: ALT (SGPT) 25 U/L (0-35); AST (SGOT) 21 U/L (14-36); Albumin 4.1 g/dl (3.5-5.0); Alkaline Phosphatase 28 U/L (38-126); Blood Urea Nitrogen 10 mg/dl (7-17); Calcium 9.3 mg/dl (8.4-10.2); Carbon Dioxide 23 mmol/L (22-30); Chloride 115 mmol/L (98-107); Glucose 95 mg/dl (70-99); Lipase 120 U/L (23-300); Potassium 4.3 mmol/L (3.5-5.1); Sodium 143 mmol/L (135-145); Total Bilirubin 0.3 mg/dl (0.2-1.3); Total Protein 6.5 g/dl (6.3-8.2); eGFR > 60.00
[2024-08-25 17:16] VITALS: BMI 35.5
[2024-08-25 17:18] VITALS: BP 115/76
[2024-08-25 18:14] LABS: Urine Albumin Negative (Neg - Trace); Urine Bilirubin Negative (Negative); Urine Character Clear (Clear); Urine Color Yellow; Urine Glucose Negative (Negative); Urine Ketone Negative (Negative); Urine Leukocyte Negative (Negative); Urine Nitrite Negative (Negative); Urine Occult Blood Negative (Negative); Urine Urobilinogen Negative (Neg - 1+)
--- NOTE | 2024-08-26 00:12 | ED.GENMED ---
History of Present Illness
General
Chief Complaint: Abdominal Symptoms
Source: patient
Exam Limitations: none
Time Seen by Provider: 08/25/24 17:04
Nursing documentation reviewed up to this point in time: agreed with
History of Present Illness
History of Present Illness:
29-year-old female presents for abdominal cramping pain, states she is nauseous, has been vomiting, having diarrhea. She has been dizzy and fatigued
Patient is followed by a GI doctor and a gastroparesis specialist.
She has chronic abdominal pain nausea and vomiting and diarrhea
She has had multiple workups and states no one has been able to manage her pain.
Past History
Past History
ED Past Medical History: Fibromyalgia, Psychiatric (Anxiety, depression), Other (fibromyalgia, chronic migraines, Lupus, POTS) and Other (Polycystic ovarian syndrome, seasonal allergies, morbid obesity)
ED Past Surgical History: Other (Septoplasty)
Social History
Tobacco: Non-smoker
Alcohol: None
Drug: None
Personal: Single
Living: with family
Employment: Disabled
Review of Systems
Review of Systems
Allergies reviewed?: Yes
All Other Systems: ROS reviewed and negative except as documented in HPI and ROS
Constitutional: Reports fatigue; Denies fever
Respiratory: Denies trouble breathing
Cardiac: Denies chest pain
ABD/GI: Reports abdominal pain, nausea, vomiting and diarrhea
: Denies dysuria, frequency or difficulty voiding
Musculoskeletal: Denies edema
Skin: Reports no symptoms
Neurological: Reports no symptoms
Phy Exam
Physical Exam
Physical Exam:
GENERAL: No acute distress. A&Ox3.
CONSTITUTIONAL: Afebrile.
EYES: clear, conjunctivae normal
RESPIRATORY: Regular respirations, nonlabored, lungs clear.
CARDIOVASCULAR: Regular rate and rhythm, no murmurs, no rubs.
GI: Soft, mildly tender across lower abdomen, nondistended, normal BS
MUSCULOSKELETAL: Moves with ease. Well perfused.
SKIN: Warm, dry, pink
PSYCH: Depressed mood and affect. Well kept, interactive and appropriate
NEUROLOGIC: Awake, alert and oriented. No focal neurological deficits
Course
Orders/Labs/Results
Orders:
Orders
08/25/24 15:01
Complete Blood Count/With Diff Urgent
Comprehensive Metabolic Panel Urgent
Lipase Urgent
08/25/24 18:08
Urinalysis Reflex To Culture Urgent
Date Specimen was Collected: 08/25/24
Time Specimen was Collected: 18:07
Abnormal Lab Results
08/25/24
15:01
Absolute Lymphs (auto) 1.1 L 10^3/uL
(1.2-3.4)
Chloride 115 H mmol/L
(98-107)
Alkaline Phosphatase 28 L U/L
(38-126)
08/25/24 15:01
08/25/24 15:01
Vital Signs
Initial and Last Documented VS:
Initial Vital Signs
Temp Pulse Resp BP Pulse Ox
98.9 F 86 18 113/79 98
08/25/24 14:49 08/25/24 14:49 08/25/24 14:49 08/25/24 14:49 08/25/24 14:49
Last Documented Vital Signs
Temp Pulse Resp BP Pulse Ox
98.4 F 68 18 115/76 100
08/25/24 17:18 08/25/24 17:18 08/25/24 17:18 08/25/24 17:18 08/25/24 17:18
MDM/Problems Addressed
Differential Diagnosis Includes:
chronic pain syndrome, dehydration, UTI
MDM/Problems Addressed:
29-year-old female presents for abdominal cramping pain, states she is nauseous, has been vomiting, having diarrhea. She has been dizzy and fatigued
Patient is followed by a GI doctor and a gastroparesis specialist.
She has chronic abdominal pain nausea and vomiting and diarrhea
She has had multiple workups and states no one has been able to manage her pain.
CBC, CMP normal
Lipase normal
UA negative
Discussed negative workup, and offered to refer her to pain management
Before I had a chance to go over her instructions RN reports the patient walked out
*Critical Care Note
Total Time (30-74mins, 75-104mins- exclusive of procedures): Not Applicable
ED Attending Note
-
Portions of this chart may have been created with voice recognition software.� Occasional wrong word or��sound alike� substitutions may have occurred due to the inherent limitations of voice recognition software.
Discharge Plan
Departure
Patient Disposition: Home (Routine Discharge)
Date of Disposition: 08/25/24
Time of Disposition: 18:11
Patient with high blood pressure during this ER visit?: No
Condition: Good
Discharge Problem:
Chronic abdominal pain
Instructions: Abdominal Pain
Prescriptions:
No Action
amoxicillin-pot clavulanate 875 MG/125 MG tablet
1 tab PO Q12 Qty: 14 0RF
amoxicillin-pot clavulanate 875 MG/125 MG tablet
1 tab PO Q12 Qty: 6 0RF
amoxicillin 500 MG capsule
500 mg PO TID Qty: 30 0RF
hydrocodone-acetaminophen [Vicodin] 1 EACH tablet
1 ea PO .Q4-6HPRN Qty: 12 0RF
ibuprofen 600 MG tablet
600 mg PO Q6H Qty: 30 0RF
tt-ktvfhsig-dcqchomecogt#1-al [Auralgan (w/ acetic acid)] 14 ML drops
14 ml OT PRN PRN (Reason: ear pain) Qty: 1 0RF
prednisone 10 MG tablet
10 mg PO .TAPER Qty: 30 0RF
Rx Instructions:
Take 40mg daily x3days, 30mg daily x3days,
20mg daily x3days, 10mg daily x3days.
hydrocodone-acetaminophen 1 TABLET tablet
1 tab PO Q4HPRN PRN (Reason: pain) Qty: 8 0RF
diazepam 5 MG tablet
5 mg PO TIDPRN PRN (Reason: spasm) Qty: 9 0RF
clindamycin HCl 300 MG capsule
300 mg PO Q6 Qty: 28 0RF
ondansetron 4 MG tablet,disintegrating
4 mg PO TIDPRN PRN (Reason: nausea/vomiting) Qty: 12 0RF
prednisone 20 MG tablet
40 mg PO DAILY Qty: 8 0RF
lactulose 10 gram/15 mL solution
20 g PO BID Qty: 1200 0RF
ondansetron 4 mg tablet,disintegrating
4 mg PO Q8H PRN (Reason: nausea and vomiting) 4 Days Qty: 10 0RF
dicyclomine 10 mg capsule
10 mg PO QID PRN (Reason: abdominal cramping) Qty: 20 0RF
Referrals:
Abhijeet Reeder MD [Active, Anesthesiology]
Activity Restrictions/Additional Instructions:
As we discussed, your blood work is normal.
For your chronic pain, try Dr. Reeder
Interventions
Interventions:
*Risk Screen - Suicide Last Done: 08/25/24 14:49
*General Assessment Last Done: 08/25/24 17:15
*Neglect/Abuse Screening Last Done: 08/25/24 14:49
*ED- Fall Risk Assessment Last Done: 08/25/24 17:15
*ED COVID-19 Vaccine History Last Done: 08/25/24 17:15
*Nursing Disposition Last Done: 08/25/24 18:15
AF-Qvrbtd-Xetjuzjyzt Assessment Last Done: 08/25/24 17:20
Discharge Date and Time
Discharge Date/Time: 08/25/24 18:15
Print Language: CZECH
== END 2024-08-25 18:15 | disposition home or self-care (01) ==
LOC: EMR 14:37
PROVIDERS: Registered Nurse; EMERGENCY PHYSICIAN Emergency Medicine
DX: R10.9 Unspecified abdominal pain (principal); R11.2 Nausea with vomiting, unspecified; R19.7 Diarrhea, unspecified; R42 Dizziness and giddiness; R53.83 Other fatigue; K31.84 Gastroparesis; M79.7 Fibromyalgia; F41.8 Other specified anxiety disorders; M32.9 Systemic lupus erythematosus, unspecified; G90.A Postural orthostatic tachycardia syndrome [POTS]; E28.2 Polycystic ovarian syndrome; E66.01 Morbid (severe) obesity due to excess calories
CPT/HCPCS: 99283; 80053; 81003; 83690; 85025

== ENCOUNTER → 2024-10-06 11:47 | Outpatient (REF) | payer MEDICARE, OTHER, SELFPAY | LOC: HWRAD 11:47 | PROVIDERS: ATTENDING PHYSICIAN Student in an Organized Health Care Education/Training Program | DX: R05.3 Chronic cough (principal) | CPT/HCPCS: 71046 ==

== ENCOUNTER → 2024-10-11 15:10 | Outpatient (REF) | payer MEDICARE, OTHER, SELFPAY | LOC: RAD 15:10 | PROVIDERS: ATTENDING PHYSICIAN Nurse Practitioner; FAMILY PHYSICIAN Student in an Organized Health Care Education/Training Program | DX: N23 Unspecified renal colic (principal) | CPT/HCPCS: 74178; Q9967 ==

== ENCOUNTER 2024-12-26 06:24 | Day surgery (SDC) | payer MEDICARE, OTHER, SELFPAY ==
[2024-12-20 11:15] LABS: Hematocrit 38.4 % (37.0-47.0); Hemoglobin 13.5 g/dL (12.0-16.0); Mean Corp Hgb Conc. 35.2 g/dL (33.0-37.0); Mean Corpuscular Volume 86.1 fL (81.0-99.0); Platelet Count 188 10^3/uL (130-400); Red Cell Dist. Width 12.2 % (11.5-14.5)
[2024-12-20 11:29] LABS: Blood Urea Nitrogen 14 mg/dl (7-17); Calcium 9.7 mg/dl (8.4-10.2); Carbon Dioxide 21 mmol/L (22-30); Chloride 111 mmol/L (98-107); Glucose 89 mg/dl (70-99); Potassium 4.7 mmol/L (3.5-5.1); Sodium 140 mmol/L (135-145); eGFR > 60.00
[2024-12-20 14:04] VITALS: BMI 32.5
[2024-12-26] VITALS (8 sets, daily range): BP systolic 104–119; BP diastolic 65–79; BMI 32.5
[2024-12-26] MEDS: NORMOSOL-R/PLASMALYTE-A 1000 IV (09:15)
[2024-12-26] MEDS: ZOFRAN 4 MG IV (09:39)
[2024-12-26] MEDS: EMEND 40 MG PO (09:39)
[2024-12-26] MEDS: VALIUM 5 MG PO (11:16)
== END 2024-12-26 12:50 | disposition home or self-care (01) ==
LOC: SDS 06:24
PROVIDERS: ATTENDING PHYSICIAN Urology; FAMILY PHYSICIAN Student in an Organized Health Care Education/Training Program
DX: N30.10 Interstitial cystitis (chronic) without hematuria (principal)
CPT/HCPCS: 52260; 36415; 80048; 85027; 88305; J1580

== ENCOUNTER 2025-02-14 16:03 | Inpatient (IN) | payer MEDICARE, OTHER, SELFPAY ==
[2025-02-12 13:12] VITALS: BP 108/77
[2025-02-12] MEDS: NSS 1000 IV ×3 (16:20→22:01)
[2025-02-12] MEDS: PROTONIX IV 40 MG IV (16:21)
[2025-02-12 16:25] LABS: Hematocrit 38.1 % (37.0-47.0); Hemoglobin 13.2 g/dL (12.0-16.0); Mean Corp Hgb Conc. 34.6 g/dL (33.0-37.0); Mean Corpuscular Volume 88.2 fL (81.0-99.0); Nucleated Red Blood Cells % 0 %; Platelet Count 210 10^3/uL (130-400); Red Cell Dist. Width 12.0 % (11.5-14.5)
--- NOTE | 2025-02-12 16:40 | ED.GENMED ---
History of Present Illness
<DO Mindy Rodriguez Last Filed: 02/12/25 16:43>
General
Chief Complaint: Post Operative Problem(s)
Source: patient
Exam Limitations: none
Time Seen by Provider: 02/12/25 15:44
History of Present Illness
History of Present Illness:
29-year-old female multiple chronic medical conditions including POTS fibromyalgia underwent endoscopic removal of benign tumor in her esophagus on Thursday at [facility] since then she has had pain when she swallows, decreased p.o.
intake, no vomiting, no fevers, no bloody stools, she tells me she was not told what to expect after this procedure, she spoke with the on-call doctor recommended to come to the ER for evaluation tells me she had some viscous lidocaine from her
prior procedure did not really help her symptoms much
Past History
<DO Mindy Rodriguez Last Filed: 02/12/25 16:43>
Past History
ED Past Medical History: Fibromyalgia, Psychiatric (Anxiety, depression), Other (fibromyalgia, chronic migraines, Lupus, POTS) and Other (Polycystic ovarian syndrome, seasonal allergies, morbid obesity)
ED Past Surgical History: Other (Septoplasty)
Social History
Tobacco: Non-smoker
Alcohol: None
Drug: None
Personal: Single
Living: with family
Employment: Disabled
Review of Systems
<DO Mindy Rodriguez Last Filed: 02/12/25 16:43>
Review of Systems
All Other Systems: Not applicable
Constitutional: Denies fever
EENT: Reports no symptoms
Respiratory: Reports no symptoms
Cardiac: Reports chest pain (Behind her sternum)
ABD/GI: Reports no symptoms
: Reports no symptoms
Musculoskeletal: Reports no symptoms
Phy Exam
<DO Mindy Rodriguez Last Filed: 02/12/25 16:43>
Physical Exam
Physical Exam:
Physical Exam
General: no apparent distress, not acutely ill
Neck: No jaundice no drooling no stridor normal voice
Heart: s1/s2 regular rate and rhythm, no murmur. equal radial pulses.
Lungs: no acute respiratory distress. clear bilaterally
Abdomen: Nontender
Neuro: alert and oriented. no focal neurological deficits
Skin: no rash
Psychiatric: well kept. interactive and cooperative
Extremities: no edema.
Course
<Yamil Zaragoza, DO - Last Filed: 02/12/25 16:43>
Orders/Labs/Results
Orders:
Orders
02/12/25 Dinner
Clear Liquid
At Your Request: Full Participation
Does patient need a safe tray?: No
02/12/25 16:04
0.9% Sodium Chloride 1000 ml [Nss] 1,000 ml IV BOLUS
Mag Hydrox/Al Hydrox/Simeth [Maalox] 30 ml Phenobarb/Hyoscy/Atropine/Scop [] 10 ml Viscous Lidocaine 2% [Xylocaine Viscous Cup] 10 ml PO NOW
Pantoprazole [Protonix IV] 40 mg IV NOW STA
02/12/25 16:[address] [CT Chest With Iv Contrast] Urgent
Comment:
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
02/12/25 16:16
Comprehensive Metabolic Panel Urgent
Lipase Urgent
02/12/25 16:17
Complete Blood Count/With Diff Urgent
02/12/25 17:05
Mag Hydrox/Al Hydrox/Simeth [Maalox] 30 ml Phenobarb/Hyoscy/Atropine/Scop [] 10 ml Viscous Lidocaine 2% [Xylocaine Viscous Cup] 10 ml PO NOW
02/12/25 17:08
Mag Hydrox/Al Hydrox/Simeth [Maalox] 30 ml .ROUTE .STK-MED ONE
Phenobarb/Hyoscy/Atropine/Scop [] 10 ml .ROUTE .STK-MED ONE
02/12/25 17:09
Viscous Lidocaine 2% [Xylocaine Viscous Cup] 15 ml .ROUTE .STK-MED ONE
02/12/25 17:54
HYDROmorphone [Dilaudid] 0.5 mg IV NOW STA
02/12/25 19:36
0.9% Sodium Chloride 1000 ml [Nss] 1,000 ml IV BOLUS
02/12/25 20:25
Sucralfate Suspension [Carafate Suspension] 1 gm PO NOW STA
02/12/25 20:35
Admit/Transfer Patient As Directed
Co-Sign Provider:
Level of Care: Observation services
Assign to:: Medical/Surgical
Physician / Group: bryn perera
Diagnosis: Postop pain benign tumor resection esophagus
Code Status As Directed
Resuscitation Status: Full Code
02/12/25 20:37
PRN Pain Medication Management As Directed
May give lesser potent ordered pain med per pt: Yes
preference::
Protocol:: Medication orders for pain may be administered in a
manner that supports deferring to patient preference
when the pt is:
- Requesting an ordered lesser potent pain medication.
Least to most potent pain medications are defined
as: acetaminophen < NSAID < tramadol < opioids
(morphine, oxycodone, hydromorphone).
- Requesting a lesser dose of the same medication IF
ORDERED.
- Requesting a less intrusive route of administration
if both routes are prescribed by the provider (PO <
IV).
02/12/25 21:15
0.9% Sodium Chloride 1000 ml [Nss] 1,000 ml IV 100 mls/hr
Acetaminophen [Tylenol] 650 mg PO Q4HPRN PRN
HYDROmorphone [Dilaudid] 0.5 mg IV Q3HPRN PRN
HYDROmorphone [Dilaudid] 1 mg IV Q4HPRN PRN
02/12/25 21:15
Activity As Directed
Activity Level: As Tolerated
Pneumatic Compression Sleeves As Directed
Type: Knee high
Vital Signs As Directed
Frequency: Per unit guidelines
DX Deep Vein Thrombosis Video Routine
02/12/25 22:00
Sucralfate Suspension [Carafate Suspension] 1 gm PO ACHS
02/13/25 08:00
Pantoprazole [Protonix IV] 40 mg IV DAILY
02/12/25 16:17
02/12/25 16:16
Vital Signs
Initial and Last Documented VS:
Initial Vital Signs
Temp Pulse Resp BP Pulse Ox
98.6 F 84 16 108/77 98
02/12/25 13:12 02/12/25 13:12 02/12/25 13:12 02/12/25 13:12 02/12/25 13:12
Last Documented Vital Signs
Temp Pulse Resp BP Pulse Ox
97.6 F 66 20 94/51 98
02/12/25 23:05 02/12/25 23:05 02/12/25 23:05 02/12/25 23:05 02/12/25 23:05
<Tobias Vazquez, - Last Filed: 02/13/25 00:15>
Orders/Labs/Results
Orders:
Orders
02/12/25 Dinner
Clear Liquid
At Your Request: Full Participation
Does patient need a safe tray?: No
02/12/25 16:04
0.9% Sodium Chloride 1000 ml [Nss] 1,000 ml IV BOLUS
Mag Hydrox/Al Hydrox/Simeth [Maalox] 30 ml Phenobarb/Hyoscy/Atropine/Scop [] 10 ml Viscous Lidocaine 2% [Xylocaine Viscous Cup] 10 ml PO NOW
Pantoprazole [Protonix IV] 40 mg IV NOW STA
02/12/25 16:[address] [CT Chest With Iv Contrast] Urgent
Comment:
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
02/12/25 16:16
Comprehensive Metabolic Panel Urgent
Lipase Urgent
02/12/25 16:17
Complete Blood Count/With Diff Urgent
02/12/25 17:05
Mag Hydrox/Al Hydrox/Simeth [Maalox] 30 ml Phenobarb/Hyoscy/Atropine/Scop [] 10 ml Viscous Lidocaine 2% [Xylocaine Viscous Cup] 10 ml PO NOW
02/12/25 17:08
Mag Hydrox/Al Hydrox/Simeth [Maalox] 30 ml .ROUTE .STK-MED ONE
Phenobarb/Hyoscy/Atropine/Scop [] 10 ml .ROUTE .STK-MED ONE
02/12/25 17:09
Viscous Lidocaine 2% [Xylocaine Viscous Cup] 15 ml .ROUTE .STK-MED ONE
02/12/25 17:54
HYDROmorphone [Dilaudid] 0.5 mg IV NOW STA
02/12/25 19:36
0.9% Sodium Chloride 1000 ml [Nss] 1,000 ml IV BOLUS
02/12/25 20:25
Sucralfate Suspension [Carafate Suspension] 1 gm PO NOW STA
02/12/25 20:35
Admit/Transfer Patient As Directed
Co-Sign Provider:
Level of Care: Observation services
Assign to:: Medical/Surgical
Physician / Group: bryn perera
Diagnosis: Postop pain benign tumor resection esophagus
Code Status As Directed
Resuscitation Status: Full Code
02/12/25 20:37
PRN Pain Medication Management As Directed
May give lesser potent ordered pain med per pt: Yes
preference::
Protocol:: Medication orders for pain may be administered in a
manner that supports deferring to patient preference
when the pt is:
- Requesting an ordered lesser potent pain medication.
Least to most potent pain medications are defined
as: acetaminophen < NSAID < tramadol < opioids
(morphine, oxycodone, hydromorphone).
- Requesting a lesser dose of the same medication IF
ORDERED.
- Requesting a less intrusive route of administration
if both routes are prescribed by the provider (PO <
IV).
02/12/25 21:15
0.9% Sodium Chloride 1000 ml [Nss] 1,000 ml IV 100 mls/hr
Acetaminophen [Tylenol] 650 mg PO Q4HPRN PRN
HYDROmorphone [Dilaudid] 0.5 mg IV Q3HPRN PRN
HYDROmorphone [Dilaudid] 1 mg IV Q4HPRN PRN
02/12/25 21:15
Activity As Directed
Activity Level: As Tolerated
Pneumatic Compression Sleeves As Directed
Type: Knee high
Vital Signs As Directed
Frequency: Per unit guidelines
DX Deep Vein Thrombosis Video Routine
02/12/25 22:00
Sucralfate Suspension [Carafate Suspension] 1 gm PO ACHS
02/13/25 08:00
Pantoprazole [Protonix IV] 40 mg IV DAILY
02/12/25 16:17
02/12/25 16:16
Vital Signs
Initial and Last Documented VS:
Initial Vital Signs
Temp Pulse Resp BP Pulse Ox
98.6 F 84 16 108/77 98
02/12/25 13:12 02/12/25 13:12 02/12/25 13:12 02/12/25 13:12 02/12/25 13:12
Last Documented Vital Signs
Temp Pulse Resp BP Pulse Ox
97.6 F 66 20 94/51 98
02/12/25 23:05 02/12/25 23:05 02/12/25 23:05 02/12/25 23:05 02/12/25 23:05
<Yamil Zaragoza, DO - Last Filed: 02/12/25 16:43>
*Pulse Oximetry
SaO2: 98
Oxygen Mode of Delivery: Room air
<Tobias Vazquez, DO - Last Filed: 02/13/25 00:15>
*Pulse Oximetry
Patient hypoxic: no
*Critical Care Note
Total Time (30-74mins, 75-104mins- exclusive of procedures): Not Applicable
<Tobias Vazquez, DO - Last Filed: 02/13/25 00:15>
Update Note
Update Note:
Received patient in signout. CAT scan pending. Into see the patient and to discuss CAT scan results. Patient is in tears stating that she would like to know why she is in pain. I did review lab work and CT scan findings. I will reach out to .
JASON Alvarado at [facility] on-call.
Patient reached out to Dr. Tobias Alvarado on her private cell phone. This was being done while we were attempting to contact him. I did speak with him and he requested that we admit patient overnight for hydration and pain control. The operative
surgeon will reach out to patient in the a.m.
ED Attending Note
<Yamil Zaragoza, DO - Last Filed: 02/12/25 16:43>
-
Portions of this chart may have been created with voice recognition software.� Occasional wrong word or��sound alike� substitutions may have occurred due to the inherent limitations of voice recognition software.
Discharge Plan
Departure
Patient Disposition: Admit
Date of Disposition: 02/12/25
Time of Disposition: 17:54
Admit to: Med/Surg
Presentation/result/management discussed w/ accepting MD/DO: Hospitalist
Patient with high blood pressure during this ER visit?: No
Condition: Good
Discharge Problem:
Post-op pain
Interventions
Interventions:
*Risk Screen - Suicide Last Done: 02/12/25 22:17
*General Assessment Last Done: 02/12/25 19:12
*Neglect/Abuse Screening Last Done: 02/12/25 13:15
*ED- Fall Risk Assessment Last Done: 02/12/25 19:12
*ED COVID-19 Vaccine History Last Done: 02/12/25 22:17
*ED Influenza Vaccine History Last Done: 02/12/25 19:12
*Nursing Disposition Last Done: 02/12/25 21:28
ED-Skin Assessment Last Done: 02/12/25 16:16
Discharge Date and Time
Discharge Date/Time: 02/12/25 21:29
[2025-02-12 16:43] LABS: ALT (SGPT) 17 U/L (0-35); AST (SGOT) 18 U/L (14-36); Albumin 4.1 g/dl (3.5-5.0); Alkaline Phosphatase 40 U/L (38-126); Blood Urea Nitrogen 12 mg/dl (7-17); Calcium 9.0 mg/dl (8.4-10.2); Carbon Dioxide 28 mmol/L (22-30); Chloride 106 mmol/L (98-107); Glucose 81 mg/dl (70-99); Lipase 81 U/L (23-300); Potassium 3.9 mmol/L (3.5-5.1); Sodium 137 mmol/L (135-145); Total Protein 6.6 g/dl (6.3-8.2); eGFR > 60.00
[2025-02-12] MEDS: MAALOX 50 PO (17:10)
[2025-02-12 18:03] VITALS: BP 93/53
[2025-02-12] MEDS: DILAUDID 0.5 MG IV (18:03)
--- NOTE | 2025-02-12 19:53 | HPS.HSE ---
Addendum entered and electronically signed by Raghavendra Maradiaga DO 02/12/25 21:24:
Patient seen and examined independently. Agree with findings and plan as set forth by JUDY Trevizo.
Patient is a 29y F with PMH significant for GI motility disorder, fibromyalgia, PCOS and obesity who presents to ED complaining of chest pain. Patient underwent endoscopy with excision of benign lesion from distal esophagus on 02/10 at [facility] with
Dr. Tobias Lam. She states that she has had pain since that procedure. After return home, the pain continued - worse when she tried to eat / drink. No N/V. No BM yet since procedure.
It is of note that patient completed a prednisone taper yesterday - having been on this medication before/ during her procedure.
Ass:
Post-Op Pain
Benign Esophageal Lesion
POTS
Fibromyalgia
Gastroparesis
Urticarial vasculitis hands and feet
Hypermobility spectrum disorder
Asthma
Anxiety/ Depression
Migraines
PCOS
Obesity due to excess calories
Plan:
Observe overnight for symptom management.
Evaluation in the ED - including CT imaging of the chest / mediastinum - is completely unremarkable.
Carafate / PPI / IVF support.
Follow for symptom improvement.
Limit to clear liquid diet for now pending improvement in pain.
Patient's GI from [facility] plans to reach out to her in the AM for update.
Continue usual chronic medications.
Avoid NSAIDs, prednisone, etc.
Original Note:
Family Physician
-
Family Physician: Chelle Burk MD, Resident
Chief Complaint
-
Esophageal pain status post removal benign tumor
History of Present Illness
29-year-old female states she underwent endoscopic removal of benign tumor in her distal esophagus on 02/10/2025 at [facility]. She also reports she recently was on a prednisone taper starting at 60 mg tapering daily by 10 mg
finished it yesterday 02/11/2025. When I asked if her GI doctor was aware she was on prednisone during her endoscopy she stated no one asked her her medications. She reports she was not given any postop instructions other than resume diet as
tolerated. She came home and ate steamed meat dumplings along with tea she then bought some pur�ed [employer] soup that was green in color likely contained tomato based. She has been trying herbal teas and simply peach juice. She reports pain
with constant pain but increased with swallowing and decreased oral intake. She was unaware of what to expect postop. She reports she spoke with her doctor told her to come to the ER. She denies vomiting, fever, chills, chest pain, palpitations,
cough, shortness of breath, abdominal pain, diarrhea, urinary symptoms. ER attending spoke with Dr. Tobias GOMEZ at [facility] on-call who requested overnight hydration pain control and operative surgeon will reach out to the patient in the am she has
past medical history of POTS, fibromyalgia, gastroparesis, urticarial vasculitis hands and feet, hypermobility spectrum disorder, asthma anxiety, depression, chronic migraines, lupus, PCOS, seasonal allergies, insomnia, History of bladder cystoscopy
01/16/2025 bladder biopsy an area of glomerularations by Dr. Moss
Medical History
Past Medical History
Past Medical History: Reports Other
Additional Past Medical History:
POTS
fibromyalgia
gastroparesis
urticarial vasculitis hands and feet
hypermobility spectrum disorder
asthma
anxiety
depression
chronic migraines
lupus
PCO
seasonal allergies
insomnia
Medical marijuana
Class II obesity
Past Surgical History: Reports Other
Additional Past Surgical History:
History of bladder cystoscopy 01/16/2025 bladder biopsy an area of glomerularations by Dr. Moss
Endoscopy 02/10/2025 with benign esophageal tumor resection [facility]
Social History
Tobacco: Vaping (Medical marijuana)
Alcohol: None
Drug: Marijuana (Vapes)
Personal: Single
Living: With Family
Family History
Family History: Other (Maternal grandmother gastric cancer was a smoker)
Allergies / Home Medications
Allergies reflects when Allergies were last updated in [facility].
Home Medications with original date entered in [facility]
Allergy/Medication List:
Allergies
Allergy/AdvReac Type Severity Reaction Status Date / Time
amitriptyline Allergy Severe SEVERE Verified 12/26/24 09:23
ANXIETY/TACHYCARDIA
animal dander Allergy NASAL Verified 12/26/24 09:23
CONGESTION
cefuroxime (From Ceftin) Allergy Unknown Verified 12/26/24 09:23
levofloxacin (From Levaquin) Allergy Nausea / Verified 12/26/24 09:23
Vomiting
pollen extracts Allergy SEASONAL Verified 12/26/24 09:23
ALLERGIES/NASAL
CONGESTION
pregabalin (From Lyrica) Allergy Unknown Verified 12/26/24 09:23
Home Medications
albuterol sulfate 90 mcg/actuation aerosol inhaler 2 puff inhalation Q6H PRN SOB 12/20/24
ashwagandha root extract 300 mg tablet 600 mg PO HS Sleep 12/20/24
azelastine 137 mcg (0.1 %) nasal spray 2 spray intranasal BID 12/20/24
budesonide-formoterol HFA 80 mcg-4.5 mcg/actuation aerosol inhaler (Symbicort) 2 puff inhalation BID 12/20/24
cholecalciferol (vitamin D3) 50 mcg (2,000 unit) capsule (Vitamin D3) 50 mcg PO DAILY 12/20/24
granisetron HCl 1 mg tablet 1 mg PO PRN PRN NAUSEA 12/20/24
hydroxychloroquine 200 mg tablet (Plaquenil) 400 mg PO HS 12/20/24
ketorolac 30 mg/mL (1 mL) injection solution 30 mg IM PRN PRN MIGRAINES 12/20/24
magnesium L-threonate 48 mg magnesium (667 mg) capsule 2,000 mg PO HS 12/20/24
magnesium glycinate 400 mg PO HS Sleep 12/20/24
melatonin 5 mg tablet 10 mg PO HS 12/20/24
meloxicam 7.5 mg tablet 7.5 mg PO DAILY PRN Back pain 12/20/24
metformin 500 mg tablet 500 mg PO BID 12/20/24
omeprazole 40 mg capsule,delayed release 40 mg PO DAILY 12/20/24
ondansetron 4 mg disintegrating tablet 4 - 8 mg PO Q6H PRN NAUSEA 12/20/24
peppermint oil 2 cap PO PRN PRN N/V 12/20/24
sucralfate 1 gram tablet 1 g PO BID 12/20/24
tizanidine 4 mg capsule (Zanaflex) 4 mg PO QID 12/20/24
topiramate 200 mg tablet 200 mg PO HS 12/20/24
trazodone 100 mg tablet 100 mg PO HS 12/20/24
doxepin 10 mg capsule 10 mg PO HS 12/26/24
Review of Systems
-
History Source: Patient and Family (Mother at bedside)
A 12 point ROS was completed and negative except as noted: Yes
Constitutional: Denies Fever or Chills
EENT: Reports Other (Painful swallowing and esophagus status post benign tumor resection); Denies Sore Throat or Runny Nose
Respiratory: Denies Cough or Trouble Breathing
Cardiac: Denies Chest Pain, Diaphoresis, Palpitations or Syncope
Abdomen/GI: Denies Abdominal Pain, Nausea, Vomiting, Diarrhea or Constipated
: Denies Dysuria, Frequency, Flank Pain or Incontinence
Musculoskeletal: Denies Joint Pain or Edema
Skin: Denies Itching or Rash
Neurological: Denies Dizzy, Headache or Weakness
Endocrine: Reports No Symptoms
Hematologic/Lymphatic: Reports No Symptoms
Psych: Reports Calm
Physical Exam
Vital Signs
Vital Signs
Temp Pulse Resp BP Pulse Ox
98.6 F 69 20 93/53 100
11/16/25 13:12 02/12/25 18:03 02/12/25 18:03 02/12/25 18:03 02/12/25 18:03
Physical Exam
General: Conversant, Pain (Reports constant esophageal pain) and Obese; No Fever or Chills
HEENT: NormoCephalic, Anicteric, Moist mucous membranes, PERRLA, [place] Conjunctivae and No Ptosis; No Thrush or Pharyngeal Erythema
Respiratory: Clear; No Wheezes, Rales or Rhonchi
Cardiac: S1/S2 and Regular Rhythm; No Murmur, Rub, Gallop or Peripheral Edema
Breast: Deferred by me
GI: Soft, Non Tender, Non Distended, Normal Bowel Sounds and No Hepatosplenomegaly
Rectal: Deferred by Provider
Genito-urinary: Deferred by me
Musculoskeletal: No Clubbing, No Cyanosis and No Edema
Skin: Warm and Dry; No Rash or Jaundice
Neuro: AO x 3, No Motor Deficits, Nonfocal/grossly intact, Cranial Nerves Intact and No Sensory Deficits; No Slurred Speech, Facial Droop, Tremors or Sedated
Psych: Calm
Laboratory Results
-
02/12/25 16:17
02/12/25 16:16
Laboratory Results
Total Bilirubin 0.3 mg/dl (0.2-1.3) 02/12/25 16:16
AST 18 U/L (14-36) 02/12/25 16:16
ALT 17 U/L (0-35) 02/12/25 16:16
Alkaline Phosphatase 40 U/L (38-126) 02/12/25 16:16
Lipase 81 U/L (23-300) 02/12/25 16:16
Data Reviewed
-
Lab Data: Labs Reviewed by me
Impression/Plan
-
Impression/plan
Observation MedSurg
#Postop pain benign esophageal tumor resection 02/10/2025 likely local irritation exacerbated from diet postop and recent prednisone taper
Procedure was performed at [facility] who recommended overnight hydration and pain control Dr. Tobias Lam
Patient was unsure what to eat or drink had steamed meat dumplings after her surgery pur�ed soup that was green in color but could have contain tomato based and peach juice with herbal teas
Patient recently did prednisone taper 60 mg decrease 10 mg a day finished yesterday 02/11 2025
- Patient with no relief from green grabber containing viscous lido
- IV Dilaudid given in ER, as needed Dilaudid
- IV 2 L NSS given in ER
- Continue IV NSS 100 cc an hour
- Continue IV Protonix 40 mg daily
- Will give Carafate suspension now and with meals
- Emphasized importance of clear liquid diet clear chicken broth, clear beef broth Jell-O and water only with patient's mother present
#Gastroparesis
-Continue PPI
#Hypermobility spectrum disorder
#Urticarial vasculitis hand and feet
#POTS
#Fibromyalgia with chronic back pain
- Patient takes Zanaflex 4 mg 4 times daily for entire body muscle spasms
Patient recently did prednisone taper 60 mg decrease 10 mg a day finished yesterday 02/11 2025
#Anxiety/ depression
Patient takes Angel Gonda root when stressed last dose approximately 1 month ago 600 mg
#Chronic migraines
-Continue Topamax 200 mg at bedtime
-Patient takes Toradol intramuscular for migraines last dose approximately 1 week ago
# Lupus
-Continue Plaquenil 400 mg at bedtime
#PCOS
-Hold metformin as patient unable to eat or drink she states
#Seasonal allergies
Continue Claritin 10 mg twice daily
#Insomnia
- Continue trazodone 100 mg at bedtime, melatonin 10 mg at bedtime and doxepin 10 milligrams at bedtime
May resume her magnesium at home
#Asthma�mild question moderate
-Stopped Symbicort
approximately 1 month ago needed refil continue albuterol inhaler as needed l
#History of bladder cystoscopy 01/16/2025 bladder biopsy an area of glomerularations by Dr. Moss
DVT prophylaxis
SCDs
Full code
[2025-02-12] MEDS: CARAFATE SUSPENSION 1 GM PO ×2 (20:38→22:01)
[2025-02-12 21:18] VITALS: BP 95/66; BMI 32.8
[2025-02-12] MEDS: DILAUDID 1 MG IV (22:02)
--- NOTE | 2025-02-12 22:14 | PTCARENOTE ---
Addendum entered by Casi Samson RN 02/13/25 00:07:
Medications adjusted and added to MAR accordingly by WAREHOUSE ORDER FILLER. Any medications that were not ordered from patients home list,RN spoke with patient and gave explanation for them not being ordered per WAREHOUSE ORDER FILLER explanation. Patient expressed understanding of
explanations.
Original Note:
Patient arrived to unit via stretcher. AAOX3. Oriented to unit. Patient requesting HS medications. WAREHOUSE ORDER FILLER notified and states' will talk to admitting MD.' Awaiting response. Explained to patient and patient states understands. Pain medication given
for pain 7/10 in throat area. IVF infusing without difficulty. Call dowd within reach.
[2025-02-12 23:05] VITALS: BP 94/51
[2025-02-12] MEDS: ZOFRAN 4 MG IV (23:19)
[2025-02-12] MEDS: MAGNESIUM OXIDE 400 MG PO (23:23)
[2025-02-12] MEDS: SINEQUAN 10 MG PO (23:23)
[2025-02-12] MEDS: DESYREL 100 MG PO (23:23)
[2025-02-12] MEDS: MELATONIN 10 MG PO (23:24)
[2025-02-12] MEDS: PLAQUENIL 400 MG PO (23:24)
[2025-02-12] MEDS: TOPAMAX 200 MG PO (23:24)
[2025-02-12] MEDS: ZYRTEC 10 MG PO (23:26)
[2025-02-13] MEDS: DILAUDID 0.5 MG IV ×4 (01:09→22:08)
[2025-02-13] MEDS: CHLORASEPTIC/SORE THROAT SPRAY 1 SPRAY PO (01:55)
[2025-02-13 07:10] VITALS: BP 96/63
[2025-02-13] MEDS: NSS 1000 IV ×2 (08:28→19:24)
[2025-02-13] MEDS: ZYRTEC 10 MG PO ×2 (08:29→21:57)
[2025-02-13] MEDS: PROTONIX IV 40 MG IV ×2 (08:29→19:26)
[2025-02-13] MEDS: CARAFATE SUSPENSION 1 GM PO ×4 (08:29→21:57)
[2025-02-13] MEDS: NSS (PRESERVATIVE FREE) 10 ML IV ×2 (08:29→19:26)
[2025-02-13] MEDS: DILAUDID 1 MG IV (08:43)
--- NOTE | 2025-02-13 10:22 | CM ---
Patient sleeping, CM spoke w/ patient's mother, initial assessment completed. Patient is a 29y F with PMH significant for GI motility disorder, fibromyalgia, PCOS and obesity who presents to ED complaining of chest pain. Patient underwent
endoscopy with excision of benign lesion from distal esophagus on 02/10 at [facility].
Patient resides w/ mother and brother in a 2STH w/ basement, 3 steps to enter from the outside. Patient is independent in all areas. Current w/ OP PT, per patient's mother, patient has been on and off w/ OP PT for a while. Patient is currently on
disability.
PCP: Chelle Burk
Pharmacy: [facility]
Patient admitted under obs services. WHARTON form verbally reviewed w/ mother, copy left bedside, copy on chart
Plan: Home, no needs anticipated
[2025-02-13 12:02] LABS: Blood Urea Nitrogen 8 mg/dl (7-17); Calcium 8.5 mg/dl (8.4-10.2); Carbon Dioxide 28 mmol/L (22-30); Chloride 111 mmol/L (98-107); Estimated Creatinine Clearance 119 ml/min; Glucose 80 mg/dl (70-99); Potassium 4.5 mmol/L (3.5-5.1); Sodium 139 mmol/L (135-145); eGFR > 60.00
--- NOTE | 2025-02-13 14:25 | PTCARENOTE ---
Pt stating she is not aware of the medications she is taking in the hospital and wanted more education with what is ordered and not ordered. Home medication list was discussed with patient and mother at the bedside and the reason why some of her
medications are on hold. MD notified and asked to come discuss status and medications with patient. MD aware and will discuss with pt.
[2025-02-13 15:05] VITALS: BP 103/58
--- NOTE | 2025-02-13 15:54 | W.PN.HOSP.TC ---
Today's Communication/Plan
-
Pain control
Hold metformin ( Large tablet)
Assessment / Plan
Assessment / Plan
29-year-old female presented to the ER with chest pain. Patient underwent endoscopy with excision of a benign lesion from distal esophagus on 02/[address] [facility] [address]Gregory Romero. ER and Pt spoke to Dr. Tobias Lam yesterday . She had pain since
the procedure.
CT of the chest-no acute abnormality seen throughout the chest including no pneumothorax, no pneumomediastinum or any abnormal focal fluid collection. Subcentimeter low-attenuation right lobe thyroid lesion for which thyroid ultrasound is suggested.
Patient tearful and stating that nobody believes how much pain she is in. Anxious
Cardiovascular system S1-2 appreciated
Clear to auscultation
Abdomen no epigastric tenderness patient states that her pain is just about the epigastric area
No pedal edema
EKG-sinus rhythm rate 59 possible anterior infarct age undetermined no change since 2023
# Chest pain postprocedure
CT of the chest/Mediastinum unremarkable
Continue PPI, Carafate
Add Liquid Tylenol and also Viscous Lidocaine.
Follow for symptom improvement
Clears-advance when pain improves
Avoid NSAIDs/steroids
EKG as above
# Asthma-continue Symbicort or equivalent, as needed albuterol if needed
# History of POTS syndrome
# History of fibromyalgia
# Gastroparesis-on doxepin and also on granisetron as needed for nausea
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
# Lupus-on Plaquenil
# Hypermobility spectrum disorder
# Anxiety and depression/insomnia/PTSD-continue trazodone
# Migraines-on Topamax
# PCOS-continue metformin
# Medical marijuana use
# Obesity with a BMI of 32
# DVT prophylaxis-Lovenox
# Full code
Discussed with Dr. Richardson on the phone-advised to continue conservative treatment Carafate, PPI and viscous lidocaine if the patient gets relief from it.
Discussed with mother at bedside
Discussed with nursing
Discussed to minimize narcotic use problems with narcotic discussed with the patient
Part of this note was created using voice recognition system. Occasional wrong word or��sound alike� substitutions may have inadvertently occurred due to the inherent limitations of voice recognition software. If noted kindly bring it to my
attention for correction.
Anticipated Discharge: Within 24 hours
Subjective/Interval History
-
Date of Service: February 13, 2025
Objective Data
-
Labs:
Laboratory Results
02/13/25
11:03
Sodium 139
Potassium 4.5
Chloride 111 H
Carbon Dioxide 28
BUN 8
Creatinine 0.8
Glucose 80
Calcium 8.5
Vital Signs:
Vital Signs
Temp Pulse Resp BP Pulse Ox
98.0 F 60 16 96/63 98
02/13/25 07:10 02/13/25 07:10 02/13/25 07:10 02/13/25 07:10 02/13/25 07:10
I&O
02/12/25 02/13/25 02/14/25
06:59 06:59 06:59
Intake Total 1180 / 1180
Balance 1180 / 1180
[2025-02-13] MEDS: XYLOCAINE VISCOUS CUP 15 ML PO ×2 (16:30→22:07)
[2025-02-13] MEDS: LOVENOX 40 MG SC (16:57)
[2025-02-13] MEDS: SYMBICORT 80/4.5 MCG INHALER 2 PUFF INH (19:25)
[2025-02-13] MEDS: PLAQUENIL 400 MG PO (21:57)
[2025-02-13] MEDS: TOPAMAX 200 MG PO (21:57)
[2025-02-13] MEDS: SINEQUAN 10 MG PO (21:57)
[2025-02-13] MEDS: COLCHICINE 0.6 MG PO (21:58)
[2025-02-13] MEDS: MAGNESIUM OXIDE 400 MG PO (21:58)
[2025-02-13] MEDS: DESYREL 100 MG PO (21:58)
[2025-02-13 23:03] VITALS: BP 105/60
[2025-02-13] MEDS: MELATONIN 10 MG PO (23:32)
[2025-02-14] MEDS: XYLOCAINE VISCOUS CUP 15 ML PO ×2 (02:25→07:26)
[2025-02-14] MEDS: NSS 1000 IV (05:50)
[2025-02-14 07:10] VITALS: BP 95/64
[2025-02-14] MEDS: PROTONIX IV 40 MG IV (07:26)
[2025-02-14] MEDS: NSS (PRESERVATIVE FREE) 10 ML IV (07:27)
[2025-02-14] MEDS: FLUSH (NSS) 1 FLUSH IV (07:30)
[2025-02-14] MEDS: SYMBICORT 80/4.5 MCG INHALER 2 PUFF INH (08:10)
[2025-02-14 08:13] LABS: Blood Urea Nitrogen 4 mg/dl (7-17); Calcium 8.3 mg/dl (8.4-10.2); Carbon Dioxide 24 mmol/L (22-30); Chloride 111 mmol/L (98-107); Estimated Creatinine Clearance > 125 ml/min; Glucose 86 mg/dl (70-99); Potassium 4.0 mmol/L (3.5-5.1); Sodium 139 mmol/L (135-145); eGFR > 60.00
[2025-02-14 08:15] LABS: Hematocrit 36.1 % (37.0-47.0); Hemoglobin 11.8 g/dL (12.0-16.0); Mean Corp Hgb Conc. 32.7 g/dL (33.0-37.0); Mean Corpuscular Volume 90.9 fL (81.0-99.0); Platelet Count 167 10^3/uL (130-400); Red Cell Dist. Width 12.1 % (11.5-14.5)
[2025-02-14] MEDS: CARAFATE SUSPENSION 1 GM PO ×3 (08:50→16:39)
[2025-02-14] MEDS: ANESTHETIC LOZENGE 1 LOZENGE PO (08:50)
[2025-02-14] MEDS: DILAUDID 1 MG IV (08:51)
[2025-02-14 09:45] LABS: Troponin I < 0.012 ng/ml
[2025-02-14] MEDS: ZYRTEC PO (10:49)
[2025-02-14] MEDS: COLCHICINE PO (10:49)
--- NOTE | 2025-02-14 14:00 | W.PN.HOSP.TC ---
Addendum entered and electronically signed by Mitzy Layton MD 02/14/25 14:18:
Pt says pain is there when she swallows and liquid goes down. Also with lower chest palpation.
Original Note:
Today's Communication/Plan
-
GI eval
Add Senna
IVF
Clears
Pain management.
Assessment / Plan
Assessment / Plan
29-year-old female presented to the ER with chest pain. Patient underwent endoscopy with excision of a benign lesion from distal esophagus on 02/[address] [place] [address]Gregory Romero. ER and Pt spoke to Dr. Tobias Lam yesterday . She had pain since
the procedure. Pt Sees Ellie Spencer at [facility] GI.
CT of the chest-no acute abnormality seen throughout the chest including no pneumothorax, no pneumomediastinum or any abnormal focal fluid collection. Subcentimeter low-attenuation right lobe thyroid lesion for which thyroid ultrasound is suggested.
Cardiovascular system S1-2 appreciated
Clear to auscultation
Abdomen no epigastric tenderness patient states that her pain is just about the epigastric area
No pedal edema
EKG-sinus rhythm rate 59 possible anterior infarct age undetermined no change since 2023
# Chest pain postprocedure
CT of the chest/Mediastinum unremarkable
Continue PPI, Carafate
Added Liquid Tylenol and also Viscous Lidocaine.
Follow for symptom improvement
Clears-advance when pain improves
Avoid NSAIDs/steroids
I spoke to on 02/13/25--advised to continue conservative treatment Carafate, PPI and viscous lidocaine if the patient gets relief from it.
EKG as above ,Trop neg
Continues with pain
Will consult GI.
# Asthma-continue Symbicort or equivalent, as needed albuterol if needed
# History of POTS syndrome
# History of fibromyalgia
# Gastroparesis-on doxepin and also on granisetron as needed for nausea as OP
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
# Lupus-on Plaquenil
# Hypermobility spectrum disorder
# Anxiety and depression/insomnia/PTSD-continue trazodone
# Migraines-on Topamax
# PCOS-continue metformin
# Medical marijuana use
# Obesity with a BMI of 32
# DVT prophylaxis-Lovenox
# Full code
Discussed with mother at bedside
Discussed with nursing
Discussed to minimize narcotic use problems with narcotic discussed with the patient
Discussed with pt and mom about transferring to [facility]. She wants to tall to Ellie Spencer before she decides about transfer.
She asks if ' nothing is done here' she wants to be discharged. Discussed what Conservative management is . Discussed about imaging and labs. Also discussed that she cannot be discharged till her pain is better and can tolerate a diet.
Part of this note was created using voice recognition system. Occasional wrong word or��sound alike� substitutions may have inadvertently occurred due to the inherent limitations of voice recognition software. If noted kindly bring it to my
attention for correction.
Anticipated Discharge: Within 24 hours
Subjective/Interval History
-
Date of Service: February 14, 2025
Objective Data
-
Labs:
Laboratory Results
02/14/25
06:58
WBC 4.0 L
Hgb 11.8 L
Hct 36.1 L
Plt Count 167 D
Sodium 139
Potassium 4.0
Chloride 111 H
Carbon Dioxide 24
BUN 4 L
Creatinine 0.7
Glucose 86
Calcium 8.3 L
Vital Signs:
Vital Signs
Temp Pulse Resp BP Pulse Ox
98.0 F 68 14 95/64 98
02/14/25 07:10 02/14/25 08:14 02/14/25 08:14 02/14/25 07:10 02/14/25 08:14
I&O
02/13/25 02/14/25 02/15/25
06:59 06:59 06:59
Intake Total 1180 / 1180 3720 / 3720
Balance 1180 / 1180 3720 / 3720
--- NOTE | 2025-02-14 14:26 | VATNOTE ---
Called to assess pt's IV site d/t pt c/o pain with NSS flush. Introduced self to pt and explained that pt's nurse had asked me to assess her IV site. Pt states 'or you can just take it out because I just want to leave at this point.' IV appears WNL
without redness, swelling, or any other s/s of phlebitis or infiltration. IV flushed with a small amount of NSS to which pt stated 'yeah, that hurts.' Asked if pt would like me to remove the IV, pt family member states: 'well, you can't use it, can
you?' I informed pt and family member that likely if it hurts with flushing that the vein is likely irritated and we shouldn't use it. Pt consents to IV removal. Asked if this RN could place a new IV, pt declined. Discussed with PCN.
--- NOTE | 2025-02-14 14:56 | CM ---
Addendum entered by Chika Parker 02/14/25 15:46:
Confirmed w/ MD that patient can upgrade to inpatient, MD to message hospitalist
Patient upset bedside, called her insurance company who wanted to speak w/ CM. Per insurance, patient is being told she cannot leave, CM explained patient has not mentioned to CM directly that she wanted to leave but that is her right to do so.
Patient experience at bedside to speak w/ patient
Updated hospitalist
Original Note:
CM reviewed [employer] and observation w/ patient yesterday and again w/ mother bedside today. Patient asking is there an itemized list available or additional information regarding observation level of care. CM shared the [employer] letter is the only form
available that explains Medicare observation services. CM reiterated to patient that a medical imaging technician reviews clinicals and if an inpatient admission is determined then the LOC will be changed. CM stated it is not a time frame when the medical
director will rule on this but it is contingent on medial treatment course while admitted in the hospital. CM unable to provide patient w/ an idea of a potential bill as that is typically produced after a patient is discharged. Considering patient
has Medicaid as a secondary insurance, it is possible Medicaid can bulk picker costs that [facility] Medicare may not.
TT MD to review if patient is eligible for inpatient admission
[2025-02-14 14:58] VITALS: BP 107/62
--- NOTE | 2025-02-14 14:59 | W.PN.UPDATE ---
Update Note
Progress Note Update
Called patient back to see if she had made a decision about being transferred to [facility]. She said her GI is at [facility] and They are not at [facility].
Patient stated that she spoke to her GI Ellie Spencer who gave her a virtual appointment for tomorrow.
She insistent wants to be discharged, yet saying she is in a lot of pain. She 'would rather be at home in pain '
I discussed that if she is still in pain we need to keep her here to further investigate pain. Cannot discharge her until her pain is better and she can tolerate her diet. I also discussed about the plan for GI here to evaluate her.
She is aware of her right to leave AGAINST MEDICAL ADVICE which she does not want to do however she wants me to discharge her which I do not think she can be at this point. Very politely ,I made her aware about this plan.
(Reviewed this with risk management as well.)
Called OP JASON Spencer. Left message for call back.
(Nurse with [facility] did confirm that their group has privileges to see patients on consult at [facility].)
Await GI ernie here.
--- NOTE | 2025-02-14 15:26 | CON.GI ---
Addendum entered and electronically signed by Tono Banuelos DO 02/14/25 18:26:
I saw and examined the patient.
The SIGNS CLEANER's note was reviewed and I agree with the note.
Comment: Agree with the detailed note below. Unfortunately, patient refused any further questioning during my interview as when I asked her about her symptoms she broke out screaming that she wanted to leave AMA as she claimed that no one was
trying to help/treat her. I advised her that this was not the case as I was trying to address her concerns however ultimately she refused to answer any my questions and continue to yell that she wanted to leave AMA. I reviewed her prior EGD/EUS at
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 Doubt this is the cause of her symptoms although may have a component of hypersensitivity but again
suspect this may likely be related to FGID. Regardless, patient ultimately declined any further questioning and refused to let me examine her stating she has already told multiple physicians / providers about her symptoms and that 'no one is here
to help her'. Despite extensive counseling that this is not the case and reassurance, she refused any further questioning and continued to request to leave AMA. Patient should follow-up at [facility] if she would have recurrent symptoms or any other
concerning symptoms in future. As patient is planning on leaving AMA, GI will sign off. Patient should follow-up with her programming development project manager, Dr. Richardson as scheduled. Please call with any questions or concerns.
Original Note:
Consultation
-
Date/Time Consultation Requested: 02/14/25 1400
Date/Time Consultation Performed: 02/14/25 1525
Requesting Provider: vivienne Rizzo MD
Performing Provider: JUDY Newton, Shandra Banuelos DO
Reason for Consultation: chest pain
Medical History
Chief Complaint / HPI
Chief Complaint: chest pain
History of Present Illness:
Pt is a 29yo with hx fibromyalgia, anxiety/depression, PTSD, migraines, lupus, pots, PCOS, seasonal allergies, obesity, gi motility disorder with onset of chest pain. In review with patient she has history of EGD several weeks ago for motility
issues with some abnormality and went back to Dr. Romero for resection of granular Since that time she has had persistent chest pain without improvement with Dilaudid, PPI, carafate or viscous lidocaine. She is concerned for issue with
hypersensitivity leading to symptoms. She was able to take some liquid this am but per staff has been refusing IV and IVF.
She admits to multiple chronic issue with GERD on PPI, nausea/vomiting gastroparesis with prior botox, + chronic abdominal pain, diarrhea, constipation but admits to now new issues since EGD last week. She describes chest pain as 5-8/10 worse
with eating, breathing and better with lying down. Denies NSAID use and had rare med marijuana vaping use.
EGD: 02/10/25- EUS- Dylan Gallegos normal duodenum, normal stomach, subepithelial nodules in esophagus, intramucosal lesion lower third of esophagus originate from submucosa, mucosal resection performed path not reviewed
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
CT chest
No acute abnormality seen throughout the chest including no pneumothorax, pneumomediastinum or gross abnormal focal fluid collection in the posterior mediastinum.
Suggestion of subcentimeter low-attenuation right lobe thyroid lesion for which elective Thyroid ultrasound suggested for more complete evaluation.
Past Medical History
Past Medical History: Fibromyalgia, Psychiatric (anxiety/depression) and Other (migraines, lupus, pots, PCOS, seasonal allergies, obesity, gi motility disorder- gastroparesis, leukocytoclastic vascitis, intensititial cystitis )
Past Surgical History: Other (septoplasty )
Social History
Tobacco: Non-Smoker
Alcohol: None
Drug: Marijuana
Living: With Family
Employment: Employed
Family History
Family History: Other (mother with GERD prior abd surgery )
Allergies / Home Medications
Allergy/AdvReac Type Severity Reaction Status Date / Time
amitriptyline Allergy Severe SEVERE Verified 12/26/24 09:23
ANXIETY/TACHYCARDIA
animal dander Allergy NASAL Verified 12/26/24 09:23
CONGESTION
cefuroxime (From Ceftin) Allergy Unknown Verified 12/26/24 09:23
levofloxacin (From Levaquin) Allergy Nausea / Verified 12/26/24 09:23
Vomiting
pollen extracts Allergy SEASONAL Verified 12/26/24 09:23
ALLERGIES/NASAL
CONGESTION
pregabalin (From Lyrica) Allergy Unknown Verified 12/26/24 09:23
�Medication �Instructions �Recorded
albuterol sulfate 90 mcg/actuation 2 puff inhalation Q6H PRN SOB 12/20/24
aerosol inhaler
ashwagandha root extract 300 mg 600 mg PO HS Sleep 12/20/24
tablet
azelastine 137 mcg (0.1 %) nasal 2 spray intranasal BID 12/20/24
spray
budesonide-formoterol HFA 80 2 puff inhalation BID 12/20/24
mcg-4.5 mcg/actuation aerosol
inhaler (Symbicort)
cholecalciferol (vitamin D3) 50 50 mcg PO DAILY 12/20/24
mcg (2,000 unit) capsule (Vitamin
D3)
granisetron HCl 1 mg tablet 1 mg PO PRN PRN NAUSEA 12/20/24
hydroxychloroquine 200 mg tablet 400 mg PO HS 12/20/24
(Plaquenil)
ketorolac 30 mg/mL (1 mL) 30 mg IM PRN PRN MIGRAINES 12/20/24
injection solution
magnesium L-threonate 48 mg 2,000 mg PO HS 12/20/24
magnesium (667 mg) capsule
magnesium glycinate 400 mg PO HS Sleep 12/20/24
melatonin 5 mg tablet 10 mg PO HS 12/20/24
meloxicam 7.5 mg tablet 7.5 mg PO DAILY PRN Back pain 12/20/24
metformin 500 mg tablet 500 mg PO BID 12/20/24
omeprazole 40 mg capsule,delayed 40 mg PO DAILY 12/20/24
release
ondansetron 4 mg disintegrating 4 - 8 mg PO Q6H PRN NAUSEA 12/20/24
tablet
peppermint oil 2 cap PO PRN PRN N/V 12/20/24
sucralfate 1 gram tablet 1 g PO BID 12/20/24
tizanidine 4 mg capsule (Zanaflex) 4 mg PO QID 12/20/24
topiramate 200 mg tablet 200 mg PO HS 12/20/24
trazodone 100 mg tablet 100 mg PO HS 12/20/24
doxepin 10 mg capsule 10 mg PO HS 12/26/24
cetirizine 10 mg tablet (Zyrtec) 10 mg PO AMHS Allergies and Mass 02/12/25
Cell
colchicine 0.6 mg capsule 0.6 mg PO AMHS Utiarial Vasculitis 02/12/25
Review of Systems
-
History Source: Patient and Family (mother )
Constitutional: Reports Fever (at times ) and Weight Loss (over last year )
EENT: Reports No Symptoms
Cardiac: Reports Chest Pain
Abdomen/GI: Reports Abdominal Pain, Nausea, Vomiting, Diarrhea and Constipated
: Reports Other (chronic IC)
Musculoskeletal: Reports Joint Pain
Skin: Reports No Symptoms
Neurological: Reports Dizzy and Headache
Endocrine: Reports No Symptoms
Hematologic/Lymphatic: Reports No Symptoms
Vital Signs
Temp Pulse Resp BP Pulse Ox
98.4 F 81 18 107/62 100
02/14/25 14:58 02/14/25 14:58 02/14/25 14:58 02/14/25 14:58 02/14/25 14:58
Physical Exam
Exam
General: Well Developed, Well Nourished and No Apparent Distress
HEENT: Normocephalic and Anicteric
Respiratory: Clear and Other (+ tenderness when palpated mid chest )
Cardiac: Regular Rhythm
GI: Soft, Non Tender and Non Distended
Musculoskeletal: No Clubbing and No Cyanosis
Skin: Warm and Dry
Neuro: Awake, Alert and AO x 3
Psych: Calm
Results
WBC 4.0 10^3/uL (4.8-10.8) L 02/14/25 06:58
Hgb 11.8 g/dL (12.0-16.0) L 02/14/25 06:58
Hct 36.1 % (37.0-47.0) L 02/14/25 06:58
MCV 90.9 fL (81.0-99.0) 02/14/25 06:58
Plt Count 167 10^3/uL (130-400) D 02/14/25 06:58
Absolute Neuts (auto) 4.0 10^3/uL (1.4-6.5) 02/12/25 16:17
Sodium 139 mmol/L (135-145) 02/14/25 06:58
Potassium 4.0 mmol/L (3.5-5.1) 02/14/25 06:58
Chloride 111 mmol/L (98-107) H 02/14/25 06:58
Carbon Dioxide 24 mmol/L (22-30) 02/14/25 06:58
BUN 4 mg/dl (7-17) L 02/14/25 06:58
Creatinine 0.7 mg/dL (0.6-1.0) 02/14/25 06:58
Calcium 8.3 mg/dl (8.4-10.2) L 02/14/25 06:58
Total Bilirubin 0.3 mg/dl (0.2-1.3) 02/12/25 16:16
AST 18 U/L (14-36) 02/12/25 16:16
ALT 17 U/L (0-35) 02/12/25 16:16
Alkaline Phosphatase 40 U/L (38-126) 02/12/25 16:16
Lipase 81 U/L (23-300) 02/12/25 16:16
Diagnostic Image Results:
Prior GI Procedures:
EGD: 02/10/25- EUS- normal duodenum, normal stomach, subepithelial nodules in esophagus, intramucosal lesion lower third of esophagus originate from submucosa, mucosal resection performed path not reviewed
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
Colonoscopy: us digestion 6 months ago recalls as normal
Assessment / Plan
-
Pt is a 29yo with hx fibromyalgia, anxiety/depression, PTSD, migraines, lupus, pots, PCOS, seasonal allergies, obesity, gi motility disorder with onset of chest pain. In review with patient she has history of EGD several weeks ago for motility
issues with some abnormality and went back to Dr. Richardson for resection. Since that time she has had persistent chest pain without improvement with Dilaudid, PPI, carafate or viscous lidocaine. She is concerned for issue with hypersensitivity
leading to symptoms. She was able to take some liquid this am but per staff has been refusing IV and IVF. She admits to multiple chronic issue with GERD on PPI, nausea/vomiting gastroparesis with prior botox, + chronic abdominal pain, diarrhea,
constipation but admits to now new issues since EGD last week. She describes chest pain as 5-8/10 worse with eating, breathing and better with lying down. Denies NSAID use and had rare med marijuana vaping use.
EGD: 02/10/25- EUS- Dylan Gallegos normal duodenum, normal stomach, subepithelial nodules in esophagus, intramucosal lesion lower third of esophagus originate from submucosa, mucosal resection performed path not reviewed
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
11/16/125 CT chest
No acute abnormality seen throughout the chest including no pneumothorax, pneumomediastinum or gross abnormal focal fluid collection in the posterior mediastinum.
Suggestion of subcentimeter low-attenuation right lobe thyroid lesion for which elective Thyroid ultrasound suggested for more complete evaluation.
-chest pain post EMR of grandular cell tumor
-mild anemia hbg 11.8 - denies blood or black in stools
-GERD
-diarrhea/constipation
-gastroparesis- nausea/vomiting prior botox
-thyroid nodule on CT
-wt loss
other med problems:
fibromyalgia, anxiety/depression, PTSD, migraines, lupus, pots, PCOS, seasonal allergies, obesity, gi motility disorder
PLAN:
etiology of pain likely related to recent resection with procedure with local irritation vs other
current stable with stable vital sign, no signs of bleeding, CT stable without pneumothorax, pneumomediastinum or gross abnormal focal fluid collection in the posterior mediastinum
cont supportive care with IVF(pt refusing), IV pain meds (pt refusing) carafate, PPI, viscous lidocaine, tylenol PRN
cont bowel regiment with narcotic use
will review with Dr. Banuelos any role for EGD -- medical team did review with Dr. Richardson
pt agreeable to advance diet
pt is very upset about situation-- I discussed with her she can leave if tolerating diet-- she is considering signing out AMA
she was review with insurance if able to sign out
support given
family updated
pt to follow up with El to review path
-
-
Thank you for consultation and allowing me to participate in the patient's care. Please call the quality control associate GI physician during the after hours with any questions or concerns.
--- NOTE | 2025-02-14 16:04 | W.PN.UPDATE ---
Update Note
Progress Note Update
Spoke to Ellie Spencer INTAKE CLERK with GI at [facility] () with neurogastric motility team.
Pt has gastroparesis and underwent an endoscopy in October 2024. This showed esophageal nodules. Subepithelial Intramural in the lower third of esophagus. She underwent submucosal resection by advance endoscopist Dr Richardson on Feb 10 [facility] 2024. There
was on ein the middle 1/3 ( 30 cm from Incisor ) and one in lower 1/3 (35 cm from incisors) . Biopsy still pending.
Agrees with conservative management.
Discussed about GI eval here.
I also informed that I recommended transferring to [facility] if pt not better . ( Pt didn't want a transfer today) . Their group has privileges at [facility], but doesn't see inpatients.
[2025-02-14] MEDS: NSS IV (16:35)
[2025-02-14] MEDS: TYLENOL ORAL SOLUTION 650 MG PO (16:35)
--- NOTE | 2025-02-14 17:00 | PTCARENOTE ---
Dr. Layton contacted several times throughout the day for patient with multiple complaints and concerns about her care, demanding to be discharged vs requesting to be transferred to another hospital and episodes where patient is angry and verbally
confrontational to staff, then crying with progression to loud sobbing. Patient repeatedly demanded to leave the hospital, but refused to sign AMA form. Dr. Layton, nursing care partner, patient coordinator and sexual assault social worker, as well as this nurse, all
spent time at patient's bedside to listen to patient's concerns throughout the day. At 1700, patient let this nurse know that she was leaving. Patient told this nurse that she ripped up the AMA form. Dr. Bettina gautam coverage also updated at this
time.
[2025-02-14] MEDS: SENNA SYRUP 17.6 MG PO (17:11)
--- NOTE | 2025-02-15 08:32 | W.PN.UPDATE ---
Update Note
Progress Note Update
Kathleenation- [id number]
== END 2025-02-14 17:19 | disposition left against medical advice (07) | DRG 645 ==
LOC: 4 WEST ACU 16:03
PROVIDERS: Nurse Practitioner Family; ADMITTING PHYSICIAN Hospitalist; ATTENDING PHYSICIAN Hospitalist; CONSULT PHYSICIAN Student in an Organized Health Care Education/Training Program; EMERGENCY PHYSICIAN Emergency Medicine; FAMILY PHYSICIAN Student in an Organized Health Care Education/Training Program
DX: E07.89 Other specified disorders of thyroid (principal); E04.1 Nontoxic single thyroid nodule; K31.84 Gastroparesis; F41.9 Anxiety disorder, unspecified; F32.A Depression, unspecified; G43.909 Migraine, unspecified, not intractable, without status migrainosus; E28.2 Polycystic ovarian syndrome; Z68.32 Body mass index [BMI] 32.0-32.9, adult; G47.00 Insomnia, unspecified; G89.29 Other chronic pain; G90.A Postural orthostatic tachycardia syndrome [POTS]; K59.00 Constipation, unspecified; M79.7 Fibromyalgia; Z53.20 Procedure and treatment not carried out because of patient's decision for unspecified reasons; Z79.899 Other long term (current) drug therapy; Z80.0 Family history of malignant neoplasm of digestive organs
CPT/HCPCS: 71260; 80048; 80053; 83690; 84484; 85025; 85027; 93005; 94640; 96361; 96374; 96375; 99285; Q9967